=== PATIENT | female | born 1955 | race Caucasian/White ===

== ENCOUNTER 2021-05-23 02:06 | Outpatient (CLI) | payer MEDICARE, SELFPAY ==
[2021-05-23 10:27] LABS: Abs Immature Grans 0.45 10^3/uL (0.0-0.06); Basophils % 0.3; Eosinophils % 0.5; HCT 44.6 % (36.0-46.0); HGB 14.5 g/dL (11.2-15.7); Immature Grans % 2.2; Lymphocytes % 4.8; MCH 32.2 pg (27.0-33.0); MCHC 32.5 % (32.0-36.0); MCV 99.1 fL (80-95); MPV 10.5 fL (8.0-11.0); Monocytes % 4.4; Neutrophils % 87.8; Nucleated RBC 0 %; Platelet Count 270 10^3/uL (130-400); RDW 13.2 % (11.7-14.6); RDW-SD 48.2 fL; WBC 20.58 10^3/uL (4.4-10.8)
[2021-05-23 10:28] LABS: Absolute Basophil Count 0.06 10^3/uL (0.0-0.2); Absolute Lymphocyte Count 0.99 10^3/uL (1.2-3.4); Absolute Monocyte Count 0.91 10^3/uL (0.1-0.8); Absolute Neutrophil Count 18.07 10^3/uL (1.2-6.7)
[2021-05-23 10:41] LABS: ALT 31 U/L (14-59); AST 14 U/L (15-37); Albumin 3.6 g/dL (3.4-5.0); Alkaline Phosphatase 58 U/L (46-116); Anion Gap 9.4 mmol/L (3-11); BUN 26 mg/dL (7-18); Bilirubin, Total 0.5 mg/dL (0.2-1.0); CO2 27.6 mmol/L (21.0-32.0); CREATININE 0.9 mg/dL (0.55-1.02); Calcium 8.7 mg/dL (8.5-10.1); Chloride 97 mmol/L (98-107); Glucose 96 mg/dL (74-106); Sodium 134 mmol/L (136-145); Total Protein 6.8 g/dL (6.4-8.2)
--- NOTE | 2021-05-23 11:16 | DI.CT_ITS ---
Exam(s) CT CHEST W EXAM: CT CHEST W CLINICAL HISTORY: BRAIN METS C79.31 LUNG CANCER C34.11 RESTAGING TECHNIQUE: Imaging Protocol: Axial computed tomography images with coronal and sagittal reformatted images were created and reviewed CONTRAST MATERIAL: Intravenous: Omnipaque 350 Contrast volume:70 ml. COMPARISON: CT CT CHEST W CONTRAST from 11/24/2020 FINDINGS: Tracheobronchial tree: No bronchiectasis or mucous plugging. Mediastinum and Aggie: No dominant adenopathy or fluid collection. Pulmonary parenchyma: Emphysematous changes greater in the upper lung lou.. Suture material left u pper lobe near the major fissure. Post surgical scarring, minimal at the medial and posterior right l james base. Mild scarring right lung apex. No consolidation or dominant measurable mass. No pulmonary nodules. Pleura: No effusion or pneumothorax. Heart: The heart is not dilated. coronary artery calcifications are seen. Aorta: Thoracic aorta non-dilated. Atherosclerotic changes. Visualized portions of abdominal aorta s how mural thrombus and calcification as well as mild dilatation, 2.8 cm. Upper abdomen: Fatty liver. Lymph nodes: Within normal limits. Bones: Sternal wires. Soft tissues: Unremarkable. IMPRESSION: Mild bilateral postsurgical scarring . No evidence of recurrence mass, infiltrate or pulmonary nodul es. RADIATION DOSE DELIVERED: 514.66mGy.cm Total DLP DATA REPOSITORY: All CT scans at this facility are submitted to the National Radiology Data Registry (NRDR) Dose Index Registry (DIR) with the [employer] (ACR). RADIATION OPTIMIZATION: All CT scans at this facility use at least one of these dose optimization te chniques: automated exposure control; mA and/or kV adjustment per patient size (includes targeted exa ms where dose is matched to clinical indication); or iterative reconstruction.
== END 2021-05-23 02:26 ==
PROVIDERS: Nurse Practitioner Adult Health; PCP Nurse Practitioner Family; Visit Provider Internal Medicine Medical Oncology
DX: C79.31 Secondary malignant neoplasm of brain (principal); C34.11 Malignant neoplasm of upper lobe, right bronchus or lung
CPT/HCPCS: 80053; 71260; 85025

== ENCOUNTER 2021-06-19 03:17 | Outpatient (CLI) | payer MEDICARE, SELFPAY ==
[2021-06-19 11:37] LABS: Abs Immature Grans 0.09 10^3/uL (0.0-0.06); Absolute Basophil Count 0.07 10^3/uL (0.0-0.2); Absolute Eosinophil Count 0.06 10^3/uL (0.0-0.7); Absolute Lymphocyte Count 0.79 10^3/uL (1.2-3.4); Absolute Monocyte Count 0.64 10^3/uL (0.1-0.8); Absolute Neutrophil Count 10.14 10^3/uL (1.2-6.7); Basophils % 0.6; Eosinophils % 0.5; HCT 47.1 % (36.0-46.0); HGB 15.3 g/dL (11.2-15.7); Immature Grans % 0.8; Lymphocytes % 6.7; MCH 31.2 pg (27.0-33.0); MCHC 32.5 % (32.0-36.0); MCV 95.9 fL (80-95); MPV 9.3 fL (8.0-11.0); Monocytes % 5.4; Nucleated RBC 0 %; Platelet Count 291 10^3/uL (130-400); RBC 4.91 10^6/uL (3.93-5.22); RDW 12.8 % (11.7-14.6); RDW-SD 45.9 fL; WBC 11.79 10^3/uL (4.4-10.8)
[2021-06-19 12:17] LABS: ALT 41 U/L (14-59); AST 16 U/L (15-37); Alkaline Phosphatase 61 U/L (46-116); Anion Gap 8.2 mmol/L (3-11); BUN 17 mg/dL (7-18); Bilirubin, Total 0.4 mg/dL (0.2-1.0); CO2 28.8 mmol/L (21.0-32.0); CREATININE 0.8 mg/dL (0.55-1.02); Calcium 9.4 mg/dL (8.5-10.1); Chloride 100 mmol/L (98-107); Glucose 105 mg/dL (74-106); Magnesium 2.3 mg/dL (1.8-2.4); Potassium 4.4 mmol/L (3.5-5.1); Sodium 137 mmol/L (136-145); TSH 0.72 uIU/mL (0.36-3.74); Total Protein 7.7 g/dL (6.4-8.2)
== END 2021-06-19 03:18 | disposition home or self-care (01) ==
LOC: LBO 03:17
PROVIDERS: PCP Nurse Practitioner Family; Visit Provider Internal Medicine Medical Oncology
DX: Z79.899 Other long term (current) drug therapy (principal); C79.31 Secondary malignant neoplasm of brain; C34.11 Malignant neoplasm of upper lobe, right bronchus or lung
CPT/HCPCS: 36415; 80053; 83735; 84439; 84443; 85025

== ENCOUNTER 2021-06-26 10:39 | Outpatient (CLI) | payer MEDICARE, SELFPAY ==
[2021-06-26 14:51] LABS: Abs Immature Grans 0.03 10^3/uL (0.0-0.06); Absolute Basophil Count 0.03 10^3/uL (0.0-0.2); Absolute Eosinophil Count 0.06 10^3/uL (0.0-0.7); Absolute Lymphocyte Count 0.71 10^3/uL (1.2-3.4); Absolute Monocyte Count 0.35 10^3/uL (0.1-0.8); Absolute Neutrophil Count 2.41 10^3/uL (1.2-6.7); Basophils % 0.8; Eosinophils % 1.7; HCT 40.1 % (36.0-46.0); HGB 13.4 g/dL (11.2-15.7); Immature Grans % 0.8; Lymphocytes % 19.8; MCH 31.2 pg (27.0-33.0); MCHC 33.4 % (32.0-36.0); MCV 93.3 fL (80-95); MPV 9.4 fL (8.0-11.0); Monocytes % 9.7; Neutrophils % 67.2; Nucleated RBC 0 %; Platelet Count 187 10^3/uL (130-400); RDW 12.7 % (11.7-14.6); RDW-SD 43.8 fL; WBC 3.59 10^3/uL (4.4-10.8)
[2021-06-26 15:12] LABS: ALT 38 U/L (14-59); AST 16 U/L (15-37); Albumin 3.1 g/dL (3.4-5.0); Alkaline Phosphatase 65 U/L (46-116); Anion Gap 6.4 mmol/L (3-11); BUN 11 mg/dL (7-18); Bilirubin, Total 0.3 mg/dL (0.2-1.0); CO2 28.6 mmol/L (21.0-32.0); CREATININE 0.8 mg/dL (0.55-1.02); Calcium 8.8 mg/dL (8.5-10.1); Chloride 98 mmol/L (98-107); FREE T4 1.19 ng/dL (0.76-1.46); Glucose 128 mg/dL (74-106); Magnesium 1.9 mg/dL (1.8-2.4); Potassium 4.3 mmol/L (3.5-5.1); Sodium 133 mmol/L (136-145); TSH 0.76 uIU/mL (0.36-3.74)
== END 2021-06-26 10:40 | disposition home or self-care (01) ==
PROVIDERS: PCP Nurse Practitioner Family; Visit Provider Internal Medicine Medical Oncology
DX: C34.11 Malignant neoplasm of upper lobe, right bronchus or lung (principal); C79.31 Secondary malignant neoplasm of brain; Z79.899 Other long term (current) drug therapy
CPT/HCPCS: 36415; 80053; 83735; 84439; 84443; 85025

== ENCOUNTER 2021-07-03 01:53 | Outpatient (CLI) | payer MEDICARE, SELFPAY ==
--- NOTE | 2021-07-03 09:45 | DI.MRI_ITS ---
Exam(s) MR BRAIN WO/W EXAM: MR BRAIN WO/W CLINICAL HISTORY: BRAIN METASTASIS, C79.31 TECHNIQUE: Multiplanar multisequence MRI of the brain was performed. Both noninfused and contrast i nfused sequences were performed. IV Contrast injected was [address] CHEST W CONTRAST from 11/24/[address] CHEST W from 05/23/2021 FINDINGS: CEREBRAL PARENCHYMA: No evidence of intracranial hemorrhage, new mass effect nor shift of midline str uctures. No extraaxial fluid collections. Ventricles are not enlarged nor shifted. There is no significant focal signal abnormality in the cerebellar hemispheres nor within the breann, m idbrain, and thalami. Previously described ring-enhancing lesion in the white matter adjacent to the posterior aspect of th e left lateral ventricle is again noted, exhibiting minimal change and with no new ring-enhancing les ions in the brain. The amount of edema surrounding this left-sided lesion has not increased and ther e is no significant mass effect upon the adjacent left lateral ventricle. Other nonspecific white matter signal foci are unchanged, these not associated with hemorrhage, surro unding edema, nor enhancement nor restricted diffusion. PITUITARY GLAND: No mass nor parasellar abnormality. No obvious abnormality in the cavernous sinuses. FLOW VOIDS: The expected flow void are noted. No evidence of obvious aneurysm nor obvious vascular ma lformation. PARANASAL SINUSES: The visualized paranasal sinuses appear unremarkable. ORBITS: No obvious abnormal findings. IMPRESSION: 1. Stable appearance of the solitary metastatic lesion in the left periventricular white matter. No new ring-enhancing lesions in the brain and no new abnormal meningeal enhancement. DATA REPOSITORY:
[2021-07-03] MEDS: Normal Saline Flush 10 ML SYR IVP (09:50)
[2021-07-03] MEDS: Gadoterate meglumine 20 ML VIAL 13 ML IVP (09:51)
== END 2021-07-03 02:13 ==
LOC: DI 01:53
PROVIDERS: PCP Nurse Practitioner Family; Visit Provider Radiology Radiation Oncology
DX: C79.31 Secondary malignant neoplasm of brain (principal)
CPT/HCPCS: 70553

== ENCOUNTER 2021-07-10 02:43 | Outpatient (CLI) | payer MEDICARE, SELFPAY ==
[2021-07-10 09:00] LABS: HCT 43.3 % (36.0-46.0); MCH 30.9 pg (27.0-33.0); MCHC 32.3 % (32.0-36.0); MCV 95.6 fL (80-95); MPV 9.8 fL (8.0-11.0); Platelet Count 168 10^3/uL (130-400); RBC 4.53 10^6/uL (3.93-5.22); RDW 13.5 % (11.7-14.6); RDW-SD 47.2 fL; WBC 24.47 10^3/uL (4.4-10.8)
[2021-07-10 09:16] LABS: ALT 43 U/L (14-59); AST 16 U/L (15-37); Albumin 3.6 g/dL (3.4-5.0); Alkaline Phosphatase 64 U/L (46-116); Anion Gap 6.7 mmol/L (3-11); BUN 24 mg/dL (7-18); Bilirubin, Total 0.3 mg/dL (0.2-1.0); CO2 29.3 mmol/L (21.0-32.0); CREATININE 0.9 mg/dL (0.55-1.02); Calcium 9.2 mg/dL (8.5-10.1); Chloride 94 mmol/L (98-107); FREE T4 0.91 ng/dL (0.76-1.46); Glucose 122 mg/dL (74-106); Potassium 4.8 mmol/L (3.5-5.1); Sodium 130 mmol/L (136-145); Total Protein 7.2 g/dL (6.4-8.2)
[2021-07-10 09:54] LABS: Absolute Lymphocyte Count 1.22 10^3/uL (1.2-3.4); Absolute Monocyte Count 1.47 10^3/uL (0.1-0.8); Absolute Neutrophil Count 21.29 10^3/uL (1.2-6.7); Bands % 1; Metamyelocytes % 2; Nucleated RBC 1 %
[2021-07-10 09:55] LABS: Diff Comment Manual Differential; RBC Morphology Normal
== END 2021-07-10 02:44 | disposition home or self-care (01) ==
LOC: LBO 02:43
PROVIDERS: PCP Nurse Practitioner Family; Visit Provider Internal Medicine Medical Oncology
DX: C34.11 Malignant neoplasm of upper lobe, right bronchus or lung (principal); C79.31 Secondary malignant neoplasm of brain; Z79.899 Other long term (current) drug therapy
CPT/HCPCS: 36415; 80053; 83735; 84439; 85025

== ENCOUNTER 2021-07-27 03:05 | Outpatient (CLI) | payer MEDICARE, SELFPAY ==
[2021-07-27 08:21] LABS: Absolute Basophil Count 0.11 10^3/uL (0.0-0.2); HCT 41.3 % (36.0-46.0); HGB 13.5 g/dL (11.2-15.7); MCH 31.3 pg (27.0-33.0); MCHC 32.7 % (32.0-36.0); MCV 95.6 fL (80-95); MPV 8.9 fL (8.0-11.0); RBC 4.32 10^6/uL (3.93-5.22); RDW 15.1 % (11.7-14.6); RDW-SD 50.7 fL; WBC 11.45 10^3/uL (4.4-10.8)
[2021-07-27 08:47] LABS: Absolute Eosinophil Count 0.34 10^3/uL (0.0-0.7); Absolute Monocyte Count 0.92 10^3/uL (0.1-0.8); Absolute Neutrophil Count 8.13 10^3/uL (1.2-6.7); Diff Comment Manual Differential; Metamyelocytes % 2; Platelet Count 259 10^3/uL (130-400)
[2021-07-27 08:48] LABS: Poikilocytes 1+; Polychromasia Present
[2021-07-27 09:08] LABS: ALT 58 U/L (14-59); AST 18 U/L (15-37); Albumin 3.6 g/dL (3.4-5.0); Alkaline Phosphatase 62 U/L (46-116); Anion Gap 6.5 mmol/L (3-11); BUN 28 mg/dL (7-18); Bilirubin, Total 0.3 mg/dL (0.2-1.0); CO2 29.5 mmol/L (21.0-32.0); CREATININE 0.9 mg/dL (0.55-1.02); Calcium 9.2 mg/dL (8.5-10.1); Chloride 96 mmol/L (98-107); FREE T4 0.95 ng/dL (0.76-1.46); Glucose 97 mg/dL (74-106); Potassium 4.8 mmol/L (3.5-5.1); Sodium 132 mmol/L (136-145); TSH 1.01 uIU/mL (0.36-3.74); Total Protein 6.7 g/dL (6.4-8.2)
== END 2021-07-27 03:06 | disposition home or self-care (01) ==
LOC: LBO 03:05
PROVIDERS: PCP Nurse Practitioner Family; Visit Provider Internal Medicine Medical Oncology
DX: C79.31 Secondary malignant neoplasm of brain (principal); C34.11 Malignant neoplasm of upper lobe, right bronchus or lung; Z79.899 Other long term (current) drug therapy
CPT/HCPCS: 36415; 80053; 83735; 84439; 84443; 85025

== ENCOUNTER 2021-07-31 02:10 | Outpatient (CLI) | payer MEDICARE, SELFPAY ==
[2021-07-31 10:19] LABS: HCT 40.5 % (36.0-46.0); HGB 13.5 g/dL (11.2-15.7); MCH 30.9 pg (27.0-33.0); MCHC 33.3 % (32.0-36.0); MCV 93 fL (80-95); MPV 9.1 fL (8.0-11.0); Platelet Count 247 10^3/uL (130-400); RBC 4.37 10^6/uL (3.93-5.22); RDW 15.7 % (11.7-14.6); RDW-SD 51.8 fL
[2021-07-31 10:33] LABS: Absolute Eosinophil Count 0.16 10^3/uL (0.0-0.7); Absolute Lymphocyte Count 0.33 10^3/uL (1.2-3.4); Absolute Monocyte Count 1.31 10^3/uL (0.1-0.8); Atypical Lymphocytes % 1; Bands % 2; Diff Comment Manual Differential; RBC Morphology Normal
[2021-07-31 10:39] LABS: ALT 47 U/L (14-59); AST 21 U/L (15-37); Albumin 3.5 g/dL (3.4-5.0); Alkaline Phosphatase 60 U/L (46-116); Anion Gap 8.3 mmol/L (3-11); BUN 19 mg/dL (7-18); Bilirubin, Total 0.7 mg/dL (0.2-1.0); CO2 28.7 mmol/L (21.0-32.0); CREATININE 0.9 mg/dL (0.55-1.02); Calcium 8.8 mg/dL (8.5-10.1); Chloride 94 mmol/L (98-107); FREE T4 1.22 ng/dL (0.76-1.46); Glucose 119 mg/dL (74-106); Potassium 4.4 mmol/L (3.5-5.1); Sodium 131 mmol/L (136-145); TSH 0.76 uIU/mL (0.36-3.74)
== END 2021-07-31 02:11 | disposition home or self-care (01) ==
LOC: LBO 02:10
PROVIDERS: PCP Nurse Practitioner Family; Visit Provider Internal Medicine Medical Oncology
DX: C79.31 Secondary malignant neoplasm of brain (principal); C34.11 Malignant neoplasm of upper lobe, right bronchus or lung; Z79.899 Other long term (current) drug therapy
CPT/HCPCS: 36415; 80053; 83735; 84439; 84443; 85025

== ENCOUNTER 2021-08-21 04:02 | Outpatient (CLI) | payer MEDICARE, SELFPAY ==
[2021-08-21 10:35] LABS: HCT 35.2 % (36.0-46.0); HGB 11.5 g/dL (11.2-15.7); MCH 31.5 pg (27.0-33.0); MCHC 32.7 % (32.0-36.0); MCV 96 fL (80-95); Platelet Count 318 10^3/uL (130-400); RBC 3.65 10^6/uL (3.93-5.22); RDW 17.1 % (11.7-14.6); RDW-SD 58.6 fL; WBC 15.76 10^3/uL (4.4-10.8)
[2021-08-21 10:51] LABS: Absolute Lymphocyte Count 0.79 10^3/uL (1.2-3.4); Absolute Monocyte Count 0.63 10^3/uL (0.1-0.8); Absolute Neutrophil Count 13.87 10^3/uL (1.2-6.7); Atypical Lymphocytes % 1; Bands % 10; Diff Comment Manual Differential; Metamyelocytes % 3; RBC Morphology Normal
[2021-08-21 11:03] LABS: ALT 46 U/L (14-59); AST 24 U/L (15-37); Albumin 3.3 g/dL (3.4-5.0); Alkaline Phosphatase 76 U/L (46-116); Anion Gap 10.1 mmol/L (3-11); BUN 18 mg/dL (7-18); Bilirubin, Total 0.6 mg/dL (0.2-1.0); CO2 26.9 mmol/L (21.0-32.0); CREATININE 0.8 mg/dL (0.55-1.02); Calcium 9.4 mg/dL (8.5-10.1); Chloride 95 mmol/L (98-107); FREE T4 1.09 ng/dL (0.76-1.46); Glucose 119 mg/dL (74-106); Magnesium 2.4 mg/dL (1.8-2.4); Potassium 4.5 mmol/L (3.5-5.1); Sodium 132 mmol/L (136-145); TSH 0.73 uIU/mL (0.36-3.74); Total Protein 7.6 g/dL (6.4-8.2)
== END 2021-08-21 04:03 | disposition home or self-care (01) ==
LOC: LBO 04:03
PROVIDERS: PCP Nurse Practitioner Family; Visit Provider Internal Medicine Medical Oncology
DX: C79.31 Secondary malignant neoplasm of brain (principal); C34.11 Malignant neoplasm of upper lobe, right bronchus or lung; Z79.899 Other long term (current) drug therapy
CPT/HCPCS: 36415; 80053; 83735; 84439; 84443; 85025

== ENCOUNTER 2021-09-04 18:03 | Outpatient (CLI) | payer MEDICARE, SELFPAY ==
[2021-09-04 11:05] LABS: Abs Immature Grans 0.42 10^3/uL (0.0-0.06); Absolute Basophil Count 0.04 10^3/uL (0.0-0.2); Absolute Eosinophil Count 0.07 10^3/uL (0.0-0.7); Absolute Lymphocyte Count 0.43 10^3/uL (1.2-3.4); Absolute Monocyte Count 0.63 10^3/uL (0.1-0.8); Absolute Neutrophil Count 3.79 10^3/uL (1.2-6.7); Basophils % 0.7; Eosinophils % 1.3; HCT 30.1 % (36.0-46.0); Immature Grans % 7.8; MCH 32.7 pg (27.0-33.0); MCHC 33.2 % (32.0-36.0); MCV 98 fL (80-95); MPV 9.8 fL (8.0-11.0); Monocytes % 11.7; Neutrophils % 70.5; Nucleated RBC 0.6 % (0.0-0.3); Platelet Count 215 10^3/uL (130-400); RBC 3.06 10^6/uL (3.93-5.22); RDW 17.8 % (11.7-14.6); RDW-SD 63.2 fL; WBC 5.38 10^3/uL (4.4-10.8)
[2021-09-04 11:15] LABS: Anisocytosis 1+; Diff Comment Diff Reviewed
[2021-09-04 11:28] LABS: ALT 81 U/L (14-59); AST 28 U/L (15-37); Albumin 3.1 g/dL (3.4-5.0); Alkaline Phosphatase 81 U/L (46-116); Anion Gap 9.3 mmol/L (3-11); BUN 12 mg/dL (7-18); Bilirubin, Total 0.8 mg/dL (0.2-1.0); CO2 26.7 mmol/L (21.0-32.0); CREATININE 0.8 mg/dL (0.55-1.02); Calcium 9.1 mg/dL (8.5-10.1); Chloride 98 mmol/L (98-107); FREE T4 1.37 ng/dL (0.76-1.46); Glucose 123 mg/dL (74-106); Magnesium 1.9 mg/dL (1.8-2.4); Sodium 134 mmol/L (136-145); TSH 1.08 uIU/mL (0.36-3.74); Total Protein 7.3 g/dL (6.4-8.2)
== END 2021-09-04 18:04 | disposition home or self-care (01) ==
LOC: LBO 18:06
PROVIDERS: PCP Nurse Practitioner Family; Visit Provider Internal Medicine Medical Oncology
DX: C79.31 Secondary malignant neoplasm of brain (principal); C34.11 Malignant neoplasm of upper lobe, right bronchus or lung; Z79.899 Other long term (current) drug therapy
CPT/HCPCS: 36415; 80053; 83735; 84439; 84443; 85025

== ENCOUNTER 2021-09-25 03:25 | Outpatient (CLI) | payer MEDICARE, SELFPAY | END 2021-09-25 03:26 | disposition home or self-care (01) | LOC: LBO 03:25 | PROVIDERS: PCP Nurse Practitioner Family; Visit Provider Internal Medicine Medical Oncology ==

== ENCOUNTER 2021-09-25 03:29 | Outpatient (CLI) | payer MEDICARE, SELFPAY ==
[2021-09-25 10:23] LABS: Abs Immature Grans 0.31 10^3/uL (0.0-0.06); Absolute Basophil Count 0.06 10^3/uL (0.0-0.2); Absolute Eosinophil Count 0.02 10^3/uL (0.0-0.7); Absolute Lymphocyte Count 0.56 10^3/uL (1.2-3.4); Absolute Monocyte Count 0.62 10^3/uL (0.1-0.8); Basophils % 0.3; Eosinophils % 0.1; HCT 36.2 % (36.0-46.0); HGB 11.5 g/dL (11.2-15.7); Immature Grans % 1.6; Lymphocytes % 2.9; MCH 33.6 pg (27.0-33.0); MCHC 31.8 % (32.0-36.0); MCV 106 fL (80-95); MPV 9.7 fL (8.0-11.0); Monocytes % 3.2; Neutrophils % 91.9; Nucleated RBC 0.2 % (0.0-0.3); Platelet Count 333 10^3/uL (130-400); RBC 3.42 10^6/uL (3.93-5.22); RDW 17.2 % (11.7-14.6); RDW-SD 67.2 fL; WBC 19.28 10^3/uL (4.4-10.8)
[2021-09-25 10:36] LABS: Absolute Neutrophil Count 17.72 10^3/uL (1.2-6.7)
[2021-09-25 10:46] LABS: ALT 55 U/L (14-59); AST 24 U/L (15-37); Albumin 3.6 g/dL (3.4-5.0); Alkaline Phosphatase 84 U/L (46-116); Anion Gap 11.7 mmol/L (3-11); BUN 21 mg/dL (7-18); Bilirubin, Total 0.3 mg/dL (0.2-1.0); CO2 27.3 mmol/L (21.0-32.0); CREATININE 1.1 mg/dL (0.55-1.02); Calcium 9.3 mg/dL (8.5-10.1); Chloride 100 mmol/L (98-107); Estimated GFR 49.39 (mL/min/1.73m2); FREE T4 0.98 ng/dL (0.76-1.46); Glucose 154 mg/dL (74-106); Magnesium 2.1 mg/dL (1.8-2.4); Potassium 4.5 mmol/L (3.5-5.1); Sodium 139 mmol/L (136-145); TSH 0.77 uIU/mL (0.36-3.74); Total Protein 7.5 g/dL (6.4-8.2)
== END 2021-09-25 03:30 | disposition home or self-care (01) ==
LOC: LBO 03:29
PROVIDERS: PCP Nurse Practitioner Family; Visit Provider Internal Medicine Medical Oncology
DX: C79.31 Secondary malignant neoplasm of brain (principal); C34.11 Malignant neoplasm of upper lobe, right bronchus or lung; Z79.899 Other long term (current) drug therapy
CPT/HCPCS: 36415; 80053; 83735; 84439; 84443; 85025

== ENCOUNTER 2021-10-10 01:40 | Outpatient (CLI) | payer MEDICARE, SELFPAY ==
[2021-10-10] MEDS: Normal Saline Flush 10 ML SYR IVP (13:31)
--- NOTE | 2021-10-10 14:00 | DI.MRI_ITS ---
Exam(s) MR BRAIN WO/W EXAM: MR BRAIN WO/W CLINICAL HISTORY: BRAIN METS C79.31 TECHNIQUE: Multiplanar multisequence MRI of the brain was performed. CONTRAST MATERIAL: IV Contrast: 15 mL of Dotarem contrast administered. COMPARISON: MR MR BRAIN WO/W from 07/03/2021 FINDINGS: The examination is limited due to patient motion artifact. VENTRICLES AND EXTRA AXIAL SPACES: Normal in size and morphology for the patient's age. HEMORRHAGE: No new evidence of hemorrhage is seen. CEREBRAL PARENCHYMA: No focus of restricted diffusion to suggest acute infarct. There has been no ivett nge in appearance/size of the ring-enhancing lesion in the left periventricular white matter. No ivett nge in the surrounding edema is seen. No significant mass effect is appreciated. There are areas of hyperintense signal seen in the white matter on the FLAIR and T2 weighted images most consistent wit h small vessel ischemic disease. MIDLINE SHIFT: None. BRAINSTEM/CEREBELLUM: Normal. CALVARIUM: Normal. ENHANCEMENT: Please see the above discussion. VISUALIZED PARANASAL SINUSES/MASTOIDS: Clear. LUMBEE OF KWON: Normal flow void. PITUITARY GLAND: Unremarkable. OTHER FINDINGS: IMPRESSION: 1. Stable solitary intracranial metastatic lesion. 2. No new intracranial metastases, infarct or abnormality. 3. Small vessel ischemic disease. DATA REPOSITORY:
== END 2021-10-10 02:00 ==
LOC: DI 01:41
PROVIDERS: PCP Nurse Practitioner Family; Visit Provider Radiology Radiation Oncology
DX: C79.31 Secondary malignant neoplasm of brain (principal); C80.1 Malignant (primary) neoplasm, unspecified; G93.89 Other specified disorders of brain
CPT/HCPCS: 70553

== ENCOUNTER 2021-10-16 02:25 | Outpatient (CLI) | payer MEDICARE, SELFPAY ==
--- OUTSIDE RECORDS SUMMARY | 2021-10-16 02:29 | XMS_ITS | Encounter Summary ---
:1955 Author Organization [facility] Address [address] [place] [address] Care Team Providers Name Role Phone Sharif Mercedes MD Primary Care Provider Encounter Details Date Type Department Care Team Description 01/24/2018 Results Only [facility]- [facility] Komal Murguia MD [phone] [address] [place] [address] (Wo rk) Social History Tobacco Use Types Packs/Day Years Used Date Never Assessed Sex Assigned at Date Recorded Not on file documented as of this encounter Plan of Treatment Not on filedocumented as of this encounter Procedures Procedure Name Priority Date/Time Associated Diagnosis Comme [facility] SURGICAL PATHOLOGY Routine 01/24/2018 8:19 EDT Re sults for this procedure are i n the results section. documented in this encounter Results SURGICAL PATHOLOGY (01/24/2018 8:19 EDT) Pathology Report: SURGICAL PATHOLOGY REPORT [facility] Reports generated via electronic interface contain charity ginal data; SERVICES however they are lacking the format of the original re port. Caution should be taken when reading/interpreting unfo rmatted reports. Name: ? VANESA RICHARDSON ? Accession #: ? [id number] ? : ? 1955 (Age: [age]) ??F ?Collect Da te: ? 01/24/2018 ? Location: ? [facility] ? Receive Date: ? 01/25/20 18 ? Provider: KOMAL MURGUIA MD Copy to: ? Addendum ? Date Ordered: ? 01/28/2018 ? Status: Si gned Out ? Date Complete: ? 01/28/2018 ? By: RHONDA KHAN MD ? Date Reported: ? 01/28/2018 ? Addendum Comment This addendum is placed to revise the diagnosis of the case just signed out, inadvertently, before it was completed. Columnar mucosa has a rare goblet cell, compatible with focal intestinal metaplasia. There is no dysplasia. Document reviewed and electronically signed by: ? ANA KHAN MD ? Report date: 01/28/2018 By the signature above, the attending physician certif ies that he/she has personally conducted a gross and/or microscopic examin ation of the described specimens and rendered or confirmed the above diagnosi s. Final Report Final Pathologic Diagnosis: A. STOMACH, SITE NOT OTHERWISE SPECIFIED, BIOPSY: - ??Oxyntic mucosa with reactive gastropathy. - ??No evidence of Helicobacter pylori on H&E. B. ESOPHAGUS, DISTAL, BIOPSY: - ??Squamous and adjoining c olumnar mucosa with features of reflux esophagitis. ?? - ??Negative for intestinal metaplasia or dysplasia. ? Gross Description: A. ?Received in formalin labelled with proper p atient identification (initials J, J) and gastric bx are three stanley-w barby tissues (0.4 x 0.1 x 0.1 cm, 0.3 x 0.1 x 0.1 cm and 0.1 x 0.1 x 0.1 cm). Entire ly submitted in A1. B. ?Received in formalin labelled with proper p atient identification (initials J, J) and distal esophagus are four white tissues (0.6 x 0.1 x 0.1 cm to 0.1 x 0.1 x 0.1 cm). Entirely submitted in B1 and B 2. Magdy Torrez 01/27/2018 8:04 AM ? 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 Specimens Received: A: Stomach, biopsy B: Esophagus, biopsy Document reviewed and electronically signed by: ? ANA KHAN MD ? Report ??Date: 01/28/2018 12:38 By the signature above, the attending physician certif ies that he/she has personally conducted a gross and/or microscopic examin ation of the described specimens and rendered or confirmed the above diagnosi s. End of Report Specimen Performing Organization Address City/State/ZIP Code Phon e Number [facility] [address] [place] [address] SERVICES documented in this encounter Visit Diagnoses Not on filedocumented in this encounter Care Teams Complex Care Nurse Relationship Specialty Start Date End Date Sharif Mercedes MD PCP - General 04/11/11 [address] [place] [address] documented as of this encounter
--- OUTSIDE RECORDS SUMMARY | 2021-10-16 02:29 | XMS_ITS | Encounter Summary ---
:1955 Author Organization [facility] Address [address] [place] [address] Care Team Providers Name Role Phone Sharif Guzman MD Primary Care Provider Encounter Details Date Type Department Care Team Description 12/29/2013 Results Only [facility]- [facility] George Barksdale MD [phone] [address] [facility] [address] [place] [address] (Wo rk) Social History Tobacco Use Types Packs/Day Years Used Date Never Assessed Sex Assigned at Date Recorded Not on file documented as of this encounter Plan of Treatment Not on filedocumented as of this encounter Procedures Procedure Name Priority Date/Time Associated Diagnosis Comme [facility] SURGICAL PATHOLOGY Routine 12/29/2013 17:43 Resul ts for this EDT procedure are i n the results section. documented in this encounter Results SURGICAL PATHOLOGY (12/29/2013 17:43 EDT) Pathology Report: SURGICAL PATHOLOGY REPORT [facility] Reports generated via electronic interface contain charity ginal data; LAB however they are lacking the format of the original re port. Caution should be taken when reading/interpreting unfo rmatted reports. Name: ? VANESA RICHARDSON ? Accession #: ? [id number] ? : ? 1955 (Age: 58) ??F ? Collect Date: ? 12/29/2013 ? Location: ? [facility] ? Receive Date: ? 12/31/19 14 ? Provider: CRISTA BARKSDALE MD Copy to: SHARIF GUZMAN MD ? Final Pathologic Diagnosis: A. SMALL BOWEL, SECOND PORTION OF DUODENUM, BIOPSY: - ??Duodenal mucosa with no diagnostic alteration. B. STOMACH, ANTRUM, BIOPSY: - ??Antral and oxyntic mucosa with reactive (chemical) gastropathy. - ??No evidence of Helicobacter pylori on H&E. C. ESOPHAGUS, LOWER, BIOPSY: - ??Cardia type mucosa with intestinal metaplasia, neg ative for dysplasia. - ??Adjoining and separate s quamous mucosa with features of reflux esophagitis. Document reviewed and electronically signed by: AAN KHAN MD Report ??Date: 01/02/2014 11:10 By the signature above, the attending physician certif ies that he/she has personally conducted a gross and/or microscopic examin ation of the described specimens and rendered or confirmed the above diagnosi s. Specimen(s) Received: A. ?2nd portion bx B. ? Antrum bx C. ? Lower esophagus bx Clinical History: Hx Stephens's; dysphagia; clinical diagnosis code: V12. 79 Gross Description: A. ?Received in formalin labelled with proper p atient identification (initials J, J) and 2nd portion, biopsy is a single pink-stanley tissue fragment (0.4 x 0.3 x 0.2 cm). Submitted intact in block A1. B. ?Received in formalin labelled with proper p atient identification (initials J, J) and antrum biopsy are two pink-stanley tissues (0.4 x 0.3 x 0.2 cm and 0.5 x 0.3 x 0.3 cm). Entirely submitted in block B 1. C. ?Received in formalin labelled with proper p atient identification (initials J, J) and lower e sophagus, biopsy are three pink-stanley tissues (0.2 x 0.2 x 0.1 cm to 0.5 x 0.2 x 0.1 cm). Entirely submitte d in block C1. 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
--- OUTSIDE RECORDS SUMMARY | 2021-10-16 02:29 | XMS_ITS | Encounter Summary ---
:1955 Author Organization [facility] Address [address] [place] [address] Care Team Providers Name Role Phone Sharif Guzman MD Primary Care Provider Encounter Details Date Type Department Care Team Description 05/12/2016 Results Only [facility]- [facility] George Barksdale MD [phone] [address] [facility] [address] [place] [phone] (Wo rk) Social History Tobacco Use Types Packs/Day Years Used Date Never Assessed Sex Assigned at Date Recorded Not on file documented as of this encounter Plan of Treatment Not on filedocumented as of this encounter Procedures Procedure Name Priority Date/Time Associated Diagnosis Comme [facility] SURGICAL PATHOLOGY Routine 05/10/2016 7:30 EST Re sults for this procedure are i n the results section. documented in this encounter Results SURGICAL PATHOLOGY (05/10/2016 7:30 EST) Pathology Report: SURGICAL PATHOLOGY REPORT [facility] Reports generated via electronic interface contain charity ginal data; LABORATORY however they are lacking the format of the original re port. SERVICES Caution should be taken when reading/interpreting unfo rmatted reports. Name: ? VANESA RICHARDSON ? Accession #: ? [id number] ? : ? 1955 (Age: [age]) ??F ? Collect Date: ? 05/10/2016 ? Location: ? [facility] ? Receive Date: ? 7 ? Provider: CRISTA BARKSDALE MD Copy to: SHARIF GUZMAN MD ? Final Pathologic Diagnosis: A. DUODENUM, 2ND PORTION, BIOPSY: - Duodenal mucosa with no significant diagnostic abnor mality. B. STOMACH, ANTRUM AND BODY, BIOPSY: - Gastric antral mucosa with mild reactive (chemical) gastropathy. - Gastric body mucosa with no specific pathologic feat ures. C. 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 - Negative for dysplasia. D. ESOPHAGUS, MID, BIOPSY: - Squamous mucosa with no specific pathologic features . Document reviewed and electronically signed by: VANDANA CARVAJAL MD Report ??Date: 05/15/2016 13:48 By the signature above, the attending physician certif ies that he/she has personally conducted a gross and/or microscopic examin ation of the described specimens and rendered or confirmed the above diagnosi s. Specimen(s) Received: A. ??Second portion duodenum bx B. ??Antrum and body bx C. ??Distal esophagus bx D. 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 ?Received in formalin labelled with proper p atient identification (initials J, J) and 2nd portion duodenu m bx are two stanley-brown tissues (0.4 x 0.1 x 0.1 cm and 0.5 x 0.2 x 0.1 cm). Entirely submitt ed in A1. B. ?Received in formalin labelled with proper p atient identification (initials J, J) and antrum and body bx are three stanley yellow to brown tissues (0.3 x 0.1 x 0.1 cm, 0.3 x 0.3 x 0.1 cm and 0.5 x 0.1 x 0.1 cm). Entirely submitted in B1. C. ?Received in formalin labelled with proper p atient identification (initials J, J) and distal esophagus bx are two stanley- white focally brown tissues (0.3 x 0.2 x 0.2 cm and 0.4 x 0. 3 x 0.2 cm). Entirely submitted in C1. D. ?Received in formalin labelled with proper p atient identification (initials J, J) and mid eso phagus bx are two white focally brown tissues (0.2 x 0.2 x 0.1 cm and 0.3 x 0.2 x 0.1 cm). Entirely submi tted in D1. Dr. 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
--- OUTSIDE RECORDS SUMMARY | 2021-10-16 02:29 | XMS_ITS | Encounter Summary ---
:1955 Author Organization [facility] Address [address] [place] [address] Care Team Providers Name Role Phone Unknown, Provider Primary Care Provider Encounter Details Date Type Department Care Team Description 04/09/2011 Results Only [facility] Alvaro De La Rosa, Laboratory Services - [address] [place] [address] [address] [facility] [place] [address] [phone] Social History Tobacco Use Types Packs/Day Years Used Date Never Assessed Sex Assigned at Date Recorded Not on file documented as of this encounter Plan of Treatment Not on filedocumented as of this encounter Procedures Procedure Name Priority Date/Time Associated Diagnosis Comme [facility] SURGICAL PATHOLOGY Routine 04/09/2011 0:00 EST Re sults for this procedure are i n the results section. documented in this encounter Results SURGICAL PATHOLOGY (04/09/2011 0:00 EST) Pathology Report: SURGICAL PATHOLOGY REPORT [facility] Reports generated via electronic interface contain charity ginal data; LAB however they are lacking the format of the original re port. Caution should be taken when reading/interpreting unfo rmatted reports. Name: ? VANESA RICHARDSON ? Accession #: ? [id number] ? : ? 1955 (Age: 55) ??F ? Collect Date: ? 04/09/2011 ? Location: ? [facility] ? Receive Date: ? 04/09/19 12 ? Provider: ALVARO DE LA ROSA DO Copy to: FRANCISCO GUZMAN MD ? Final Pathologic Diagnosis: A. ?Small intestine, duodenum, 2nd portio n, biopsy: 1. ?Duodenal mucosa with no specific path ologic features. B. ?Stomach, antrum, biopsy: 1. ?Antral mucosa with no specific pathol ogic features. C. ?Submitted as R/O Stephens's, biopsy: 1. ?Squamocolum tato junctional mucosa with chronic inflammation and intestinal metaplasia. 2. ? Negative for dysplasia. D. ?Colon, ascending, 7.0 mm polyp, biops y: 1. ?Tubular adenoma. E. ?Colon, ascending, 1.0 mm polyps, biop sy: 1. ?Tubular adenoma(s). F. ?Colon, descending, 1.0 cm polyp, biop sy: 1. ?Hyperplastic polyp. Document reviewed and electronically signed by: BELKIS GARCIA MD Report ??Date: 04/11/2011 15:24 By the signature above, the attending physician certif ies that he/she has personally conducted a gross and/or microscopic examin ation of the described specimens and rendered or confirmed the above diagnosi s. Specimen(s) Received: A. ?2nd portion B. ? Antrum C. ? R/O Stephens's D. ? 7.0 mm ascending colon polyp E. ? 1.0 mm ascending colon polyps F. ? 1.0 cm descending colon polyp Clinical History: ? Guaiac (+) stool; A-C . EGD; D-F. Colon; clinical diagnosis code: ??578.1 Gross Description: ? Received in formalin labelled Vanesa Rihcardson and A ??2nd portion are three light stanley biopsies whi ch vary in size from 0.2 x 0.2 x 0.2 cm up to 0.4 x 0.3 x 0.2 cm. ??The specimens are submitted intact as (A). Received in formalin ira d Vanesa Richardson and B ??antrum is a 0.3 x 0.3 x 0.2 cm light stanley biopsy. ??[facility] ([facility] Received in formalin labelled Sandra Richardson and C ??R/O Stephens's are two light stanley biopsies measuring 0.3 x 0.2 x 0.1 cm and 0.3 x 0.1 x 0.1 cm. ??The specimens are submitted intact as (C). Received in formalin labelled Sandra Richardson and D ??7.0 mm ascending colon polyp is a 0.2 x 0.2 x 0.1 cm light stanley biopsy. ??The specimen is submitted intact as (D). Received in formalin labelled Sandra Richardson and E ??1.0 mm ascending colon polyps are three light stanley biopsies which vary in size from 0.1 x 0.1 x 0.1 cm up to 0.3 x 0.2 x 0.1 cm. ??The specimens are submitte d intact as (E). Received in formalin ira d Vanesa Richardson and F ??1.0 cm descending colon polyp are two light stanley biopsies measur ing 0.3 x 0.2 x 0.1 cm and 0.5 x 0.4 x 0.1 cm. ??The specimens are submitted intact as (F). ? ?(Floyd Rdz)/[facility] End of Report Specimen Performing Organization Address City/State/ZIP Code Phon e Number [facility] [address] [place] [address] SERVICES [facility] [address] [place] [address] documented in this encounter Visit Diagnoses Not on filedocumented in this encounter Care Teams [employer] Relationship Specialty Start Date End Date Unknown, Provider, PCP - General 04/09/11 04/10/11 documented as of this encounter
--- OUTSIDE RECORDS SUMMARY | 2021-10-16 02:29 | XMS_ITS | Encounter Summary ---
:1955 Author Organization [facility] Address [address] [place] [address] Care Team Providers Name Role Phone Sharif Mercedes MD Primary Care Provider Encounter Details Date Type Department Care Team Description 12/29/2013 Hospital Encounter [facility]- [place] Unknown, Provider, [facility] [address] [facility] [phone] [place] [address] (Work) [phone] Social History Tobacco Use Types Packs/Day Years Used Date Never Assessed Sex Assigned at Date Recorded Not on file documented as of this encounter Discharge Disposition Disposition Code Departure Means Destination Home or Self Assisted documented in this encounter Plan of Treatment Not on filedocumented as of this encounter Visit Diagnoses Not on filedocumented in this encounter 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
[2021-10-16 09:54] LABS: Abs Immature Grans 0.13 10^3/uL (0.0-0.06); Absolute Basophil Count 0.06 10^3/uL (0.0-0.2); Absolute Eosinophil Count 0.07 10^3/uL (0.0-0.7); Absolute Lymphocyte Count 0.52 10^3/uL (1.2-3.4); Absolute Monocyte Count 0.56 10^3/uL (0.1-0.8); Absolute Neutrophil Count 9.88 10^3/uL (1.2-6.7); Basophils % 0.5; Eosinophils % 0.6; HCT 41.7 % (36.0-46.0); HGB 13.3 g/dL (11.2-15.7); Immature Grans % 1.2; Lymphocytes % 4.6; MCH 33.3 pg (27.0-33.0); MCHC 31.9 % (32.0-36.0); MCV 104 fL (80-95); MPV 9.3 fL (8.0-11.0); Neutrophils % 88.1; Platelet Count 215 10^3/uL (130-400); RDW 14.1 % (11.7-14.6); RDW-SD 54.6 fL; WBC 11.22 10^3/uL (4.4-10.8)
[2021-10-16 10:18] LABS: ALT 127 U/L (14-59); AST 34 U/L (15-37); Albumin 3.4 g/dL (3.4-5.0); Alkaline Phosphatase 76 U/L (46-116); Anion Gap 10.1 mmol/L (3-11); BUN 21 mg/dL (7-18); Bilirubin, Total 0.3 mg/dL (0.2-1.0); CO2 26.9 mmol/L (21.0-32.0); Calcium 9.1 mg/dL (8.5-10.1); Chloride 97 mmol/L (98-107); Estimated GFR 55.14 (mL/min/1.73m2); FREE T4 1.02 ng/dL (0.76-1.46); Glucose 176 mg/dL (74-106); Potassium 4.1 mmol/L (3.5-5.1); Sodium 134 mmol/L (136-145); TSH 0.89 uIU/mL (0.36-3.74); Total Protein 7.2 g/dL (6.4-8.2)
== END 2021-10-16 02:26 | disposition home or self-care (01) ==
LOC: LBO 02:25
PROVIDERS: PCP Nurse Practitioner Family; Visit Provider Internal Medicine Medical Oncology
DX: C34.11 Malignant neoplasm of upper lobe, right bronchus or lung (principal); C79.31 Secondary malignant neoplasm of brain; Z79.899 Other long term (current) drug therapy
CPT/HCPCS: 80053; 83735; 84439; 84443; 85025

== ENCOUNTER 2021-10-30 19:23 | Inpatient (IN) | payer MEDICARE, SELFPAY ==
[2021-10-30] VITALS (35 sets, daily range): BP systolic 101–134; BP diastolic 57–98; PULSE 92–101; RESP 15–31; TEMP 36.7; O2SAT 92–97
--- NOTE | 2021-10-30 19:45 | RT.EKG_ITS ---
APPROVED REPORT Exam: Resting ECG Reason for Exam: weakness Patient Location: E HR:98 bpm ECG Measurements Heart Rate 98 AXIS NM 120 P 75 QRSd 83 QRS 55 QT 345 T 74 QTc 440 Conclusion Sinus rhythm...normal P axis, V-rate 60- 99
--- NOTE | 2021-10-30 19:45 | DI.CT_ITS ---
Exam(s) CT HEAD WO EXAM: CT HEAD WO CLINICAL HISTORY: met cancer to brain, weakness, recent mri. TECHNIQUE: Imaging Protocol: Axial computed tomography images with coronal and sagittal reformatted images were created and reviewed COMPARISON: MR MR BRAIN WO/W from 07/03/2021 MR MR BRAIN WO/W from 10/10/2021 FINDINGS: The examination is limited due to patient motion artifact. Ventricles and Extra axial spaces: Normal in size and morphology for the patient's age. Stable dilata tion of the left lateral ventricle is noted. Hemorrhage: None. Cerebral parenchyma: There are areas of decreased attenuation in the white matter consistent with sma ll vessel ischemic disease. Encephalomalacia is again seen adjacent to the atria of the left lateral ventricle. Midline shift: None. Brainstem/Cerebellum: Normal. Calvarium: There is an old left parietal craniotomy. Visualized Paranasal sinuses/Mastoids: Clear. Soft Tissues: Unremarkable. IMPRESSION: No acute intracranial process. RADIATION DOSE DELIVERED: 783.57mGy.cm Total DLP DATA REPOSITORY: All CT scans at this facility are submitted to the National Radiology Data Registry (NRDR) Dose Index Registry (DIR) with the [employer] (ACR). RADIATION OPTIMIZATION: All CT scans at this facility use at least one of these dose optimization te chniques: automated exposure control; mA and/or kV adjustment per patient size (includes targeted exa ms where dose is matched to clinical indication); or iterative reconstruction.
[2021-10-30 20:05] LABS: Abs Immature Grans 0.17 10^3/uL (0.0-0.06); Absolute Basophil Count 0.03 10^3/uL (0.0-0.2); Absolute Eosinophil Count 0.04 10^3/uL (0.0-0.7); Absolute Lymphocyte Count 0.47 10^3/uL (1.2-3.4); Absolute Monocyte Count 0.53 10^3/uL (0.1-0.8); Absolute Neutrophil Count 7.61 10^3/uL (1.2-6.7); Basophils % 0.3; Eosinophils % 0.5; HCT 43.6 % (36.0-46.0); HGB 14.6 g/dL (11.2-15.7); Immature Grans % 1.9; Lymphocytes % 5.3; MCH 33.1 pg (27.0-33.0); MCHC 33.5 % (32.0-36.0); MCV 99 fL (80-95); MPV 10.4 fL (8.0-11.0); Platelet Count 232 10^3/uL (130-400); RBC 4.41 10^6/uL (3.93-5.22); RDW 14.3 % (11.7-14.6); RDW-SD 51.8 fL; WBC 8.85 10^3/uL (4.4-10.8)
[2021-10-30 20:24] LABS: ALT 12 U/L (14-59); AST 69 U/L (15-37); Albumin 2.9 g/dL (3.4-5.0); Alkaline Phosphatase 79 U/L (46-116); Anion Gap 10.4 mmol/L (3-11); BUN 21 mg/dL (7-18); Bilirubin, Total 0.5 mg/dL (0.2-1.0); CO2 26.6 mmol/L (21.0-32.0); CREATININE 0.8 mg/dL (0.55-1.02); Calcium 9.2 mg/dL (8.5-10.1); Chloride 95 mmol/L (98-107); Glucose 135 mg/dL (74-106); Magnesium 1.9 mg/dL (1.8-2.4); Potassium 4.6 mmol/L (3.5-5.1); Sodium 132 mmol/L (136-145); Total Protein 6.9 g/dL (6.4-8.2); Troponin I 54 ng/L (<or=60)
--- NOTE | 2021-10-30 20:30 | DI.RAD_ITS ---
Exam(s) XR CHEST 2V PA LATERAL EXAM: XR CHEST 2V PA LATERAL CLINICAL HISTORY: altered, cough TECHNIQUE: 2D digital imaging was performed of the chest. Three images were obtained. PA and later al views were obtained. COMPARISON: CT CT CHEST W from 05/23/2021 FINDINGS: MEDIASTINUM: Normal. HEART: Normal. Status post CABG PULMONARY VASCULATURE: Normal. LUNGS: Clear. The lungs are hyperinflated consistent with underlying COPD. Surgical suture material is seen in the left lung. PLEURAL SPACE: No pleural effusion or pneumothorax. BONE:Within normal limits for the patient's age. Sternal wires are in place. OTHER FINDINGS:Normal. IMPRESSION: No acute pulmonary findings. DATA REPOSITORY: RADIATION DOSE DELIVERED:
[2021-10-30 21:17] LABS: Source Nasal/Nares
--- NOTE | 2021-10-30 21:29 | DI.VRAD_ITS ---
PROCEDURE INFORMATION: Exam: CT Head Without Contrast Exam date and time: 10/30/2021 8:22 PM Age: 66 years old Clinical indication: Other: Met cancer to brain weakness, recent mri; Prior surgery; Surgery date: 6+ months; Surgery type: Brain surgery, unknown, PT confused TECHNIQUE: Imaging protocol: Computed tomography of the head without contrast. Radiation optimization: All CT scans at this facility use at least one of these dose optimization techniques: automated exposure control; mA and/or kV adjustment per patient size (includes targeted exams where dose is matched to clinical indication); or iterative reconstruction. COMPARISON: MR BRAIN WO/W 10/10/2021 1:21 PM FINDINGS: Brain: No acute intracranial hemorrhage or mass effect is seen. There is encephalomalacia subjacent to the cranial plate. Residual or recurrent disease is not excluded. There is a region of hypoattenuation in the left occipital lobe on the axial series on images 21-23 of series 3. The linear appearance on the cross reference coronal series favors artifact over regional acute ischemia; however, if there is concern for an acute infarct in this distribution, MRI with diffusion-weighted imaging would be recommended for additional evaluation. There is mild global parenchymal volume loss. Cerebral ventricles: There is ex vacuo dilatation of the posterior body of the left lateral ventricle. There is no hydrocephalus. Paranasal sinuses: The visualized paranasal sinuses appear well-aerated. Mastoid air cells: The mastoid air cells appear well-aerated. Auditory system: The middle ear cavities appear clear. Orbital cavities: The globes and intraorbital structures appear grossly intact. Bones/joints: There is an old left parietal craniotomy defect. No acute skull fracture is seen. Soft tissues: No significant scalp lesion is seen. IMPRESSION: 1. No acute intracranial hemorrhage or mass effect. 2. Old left parietal craniotomy defect with subjacent encephalomalacia. No mass effect is seen in this region although residual or recurrent disease is not excluded. 3. A moderate-sized region of transcortical hypoattenuation in the left occipital lobe on the axial series has a linear appearance on the cross reference coronal series favoring artifact over acute ischemia; however, if there is concern for an acute infarct in this distribution, MRI with diffusion-weighted imaging would be recommended for additional evaluation. Dictated and Authenticated by: Reg Muñoz MD. Ordering:REMI Smith MD
--- NOTE | 2021-10-30 21:29 | ED.GENADUL_ITS ---
Discharge Plan Disposition Patient Disposition: [facility] INPATIENT Condition: Serious Discharge Details Chief Complaint: GenMedical Clinical Impression: Brain cancer, Inability to walk, Weakness Primary Care Provider: Iqra Cardenas ED Provider: Luis Presley Home Meds and New Rx's Prescriptions: No Action atorvastatin 80 mg Tablet 80 mg PO QHS nystatin 100,000 unit/mL Suspension 100,000 unit PO DAILY Rx Instructions: administer 1/2 of dose in each side of the mouth sodium chloride 1 gram Tablet 1 g PO BID prochlorperazine maleate 10 mg Tablet 10 mg PO Q6H PRN PRN folic acid 400 mcg Tablet 400 mcg PO USEASDIRECTD Rx Instructions: takes yearly acetaminophen 500 mg Tablet 1,000 mg PO Q6H PRN ondansetron 8 mg Tablet,Disintegrating 8 mg PO Q8H PRN PRN citalopram 20 mg Tablet 20 mg PO DAILY famotidine 20 mg Tablet 20 mg PO DAILY dexamethasone 2 mg Tablet 4 mg PO DAILY Rx Instructions: start oct 30 and then will be re-evaluated by Marquita LORENZANA omeprazole 20 mg Capsule,Delayed Release(Dr/Ec) 20 mg PO DAILY albuterol sulfate [ProAir HFA] 90 mcg/actuation Hfa Aerosol Inhaler 2 puff INHALATION Q4H PRN PRN fludrocortisone 0.1 mg Tablet 0.1 mg PO DAILY fluticasone furoate-vilanterol [Breo Ellipta] 100-25 mcg/dose Blister With Device 1 inh INHALATION DAILY Medical Decision Making 2134 --66-year-old female with metastatic brain cancer, leptomeningeal lesion, here with inability to ambulate, generalized weakness, and progressive symptoms today, recently on Decadron taper. I spoke with the patient's oncologist, Dr. Morris at [facility], discussed ED presentation course, she has reviewed [facility] records and knows the patient, she recommends giving dexamethasone 10 mg IV and admitting here with plan for MRI of the brain tomorrow morning. CT the head was interpreted by radiology: IMPRESSION: 1. No acute intracranial hemorrhage or mass effect. 2. Old left parietal craniotomy defect with subjacent encephalomalacia. No mass effect is seen in this region although residual or recurrent disease is not excluded. 3. A moderate-sized region of transcortical hypoattenuation in the left occipital lobe on the axial series has a linear appearance on the cross reference coronal series favoring artifact over acute ischemia; however, if there is concern for an acute infarct in this distribution, MRI with diffusion-weighted imaging would be recommended for additional evaluation. Chest x-ray negative. Labs reviewed and nondiagnostic. 2299--I spoke with Dr. Galvin who will admit the patient. Care transitioned to Dr. Galvin. Lab Data Lab results reviewed: Yes I reviewed the patient's lab results. Labs: Laboratory Tests Range/Units 10/30/21 10/30/21 10/30/21 19:55 19:55 21:10 WBC (4.4-10.8) 10^3/uL 8.85 RBC (3.93-5.22) 10^6/uL 4.41 Hgb (11.2-15.7) g/dL 14.6 Hct (36.0-46.0) % 43.6 MCV (80-95) fL 99 H MCH (27.0-33.0) pg 33.1 H MCHC (32.0-36.0) % 33.5 RDW (11.7-14.6) % 14.3 Plt Count (130-400) 10^3/uL 232 MPV (8.0-11.0) fL 10.4 Immature Gran % 1.9 Neutrophils % 86.0 Lymphocytes % 5.3 Monocytes % 6.0 Eosinophils % 0.5 Basophils % 0.3 Nucleated RBC % (0.0-0.3) % 0.0 Absolute Neutrophils (1.2-6.7) 10^3/uL 7.61 H Absolute Lymphocytes (1.2-3.4) 10^3/uL 0.47 L Absolute Monocytes (0.1-0.8) 10^3/uL 0.53 Absolute Eosinophils (0.0-0.7) 10^3/uL 0.04 Absolute Basophils (0.0-0.2) 10^3/uL 0.03 Sodium (136-145) mmol/L 132 L Potassium (3.5-5.1) mmol/L 4.6 Chloride (98-107) mmol/L 95 L Carbon Dioxide (21.0-32.0) mmol/L 26.6 Anion Gap (3-11) mmol/L 10.4 BUN (7-18) mg/dL 21 H Creatinine (0.55-1.02) mg/dL 0.8 Estimated GFR/1.73 m2 (mL/min/1.73m2) >= 60.00 Glucose (74-106) mg/dL 135 H Calcium (8.5-10.1) mg/dL 9.2 Magnesium (1.8-2.4) mg/dL 1.9 Total Bilirubin (0.2-1.0) mg/dL 0.5 AST (15-37) U/L 69 H ALT (14-59) U/L 12 L Alkaline Phosphatase (46-116) U/L 79 Troponin I (<or=60) ng/L 54 Total Protein (6.4-8.2) g/dL 6.9 Albumin (3.4-5.0) g/dL 2.9 L COVID-19 Source Nasal/Nares SARS-CoV-2 (PCR) (Negative) Negative HPI General Mode of arrival: ambulatory . Date/Time Provider Initiated Documentation: 10/30/21 19:28 . Limitations to Documentation: no limitations . Information obtained by: patient and family . HPI Narrative: 66yo f with history of metastatic brain cancer, status post resection and radiation, currently on recently tapered dose of dexamethasone presenting with chief complaint of weakness. Patient has had generalized weakness today with difficulty ambulating. notes she was having some difficulty ambulating yesterday and this is worsened today. She can no longer ambulate. Symptoms are severe. No modifiers. She also has associated headache today as well as vomiting this morning and frequent episodes of solid bowel movements today. Related Data Home Medications Medication Instructions Recorded Confirmed acetaminophen 500 mg tablet 1,000 mg PO Q6H PRN 10/30/21 10/30/21 albuterol sulfate 90 mcg/actuation 2 puff inhalation Q4H PRN PRN 10/30/21 10/30/21 aerosol inhaler (ProAir HFA) atorvastatin 80 mg tablet 80 mg PO QHS 10/30/21 10/30/21 citalopram 20 mg tablet 20 mg PO DAILY 10/30/21 10/30/21 dexamethasone 2 mg tablet 4 mg PO DAILY 10/30/21 10/30/21 famotidine 20 mg tablet 20 mg PO DAILY 10/30/21 10/30/21 fludrocortisone 0.1 mg tablet 0.1 mg PO DAILY 10/30/21 10/30/21 fluticasone furoate 100 1 inh inhalation DAILY 10/30/21 10/30/21 mcg-vilanterol 25 mcg/dose inhalation powder (Breo Ellipta) folic acid 400 mcg tablet 400 mcg PO USEASDIRECTD 10/30/21 10/30/21 nystatin 100,000 unit/mL oral 100,000 unit PO DAILY 10/30/21 10/30/21 suspension omeprazole 20 mg capsule,delayed 20 mg PO DAILY 10/30/21 10/30/21 release ondansetron 8 mg disintegrating 8 mg PO Q8H PRN PRN 10/30/21 10/30/21 tablet prochlorperazine maleate 10 mg 10 mg PO Q6H PRN PRN 10/30/21 10/30/21 tablet sodium chloride 1 gram tablet 1 g PO BID 10/30/21 10/30/21 Allergies Allergy/AdvReac Type Severity Reaction Status Date / Time No Known Allergies Allergy Unverified 10/30/21 19:36 General Stated Complaint: GenMedical DELANO: 3 Review of Systems All systems reviewed & are unremarkable except as noted in HPI and below Constitutional Constitutional: Denies fever(s) Cardiovascular Cardiovascular: Denies chest pain Respiratory Respiratory: Denies cough Neurologic Neurologic: Reports as per HPI PFSH All Active Problems (Updated 10/30/21 @ 23:06 by Luis Presley MD) Brain cancer (Chronic) Inability to walk (Acute) Weakness (Acute) Medical History Brain cancer Lung cancer Surgical History Hx of CABG Social History Smoking/Tobacco Use Status: Former Tobacco Use Smoking risk assessment performed?: Yes Alcohol Intake: former Drug use: Never Substance use type: does not use Do you feel safe at home: Yes Do you feel safe in your relationship?: Yes Exam Const General: cooperative and no acute distress HENMT Head: atraumatic Mouth: moist mucous membranes Eyes Conjunctivae: normal conjunctivae Sclera: normal sclerae EOM: EOM intact bilaterally Resp Effort & Inspection: cough Auscultation: clear to auscultation bilaterally, no rales, no rhonchi and no wheezes Cardio Rate: regular rate and not tachycardic Rhythm: regular rhythm GI Palpation: soft, not firm, no guarding, no masses, not rigid and nontender Skin General skin exam: no rashes or lesions noted Neuro General: patient alert, patient awake, patient oriented x3 and tone normal Cranial Nerves: PERRL, facial strength normal, tongue midline, able to rotate head bilaterally, able to elevate shoulders bilaterally and symmetric palate elevation Cognition: normal cognition Speech: speech normal Motor: strength abnormal (1/5 bilateral LEs, 5/5 bilateral UEs) Sensory Exam: no sensory deficits noted Extrem General: no edema Psych Appearance: grossly normal Mental Status: mental status grossly normal Course Vital Signs Vital signs: Vital Signs Temperature 36.7 C 10/30/21 19:32 Pulse 99 H 10/30/21 19:32 Respiratory Rate 24 10/30/21 19:32 Blood Pressure 105/58 L 10/30/21 19:32 Pulse Oximetry 95 10/30/21 19:32 Temperature 36.7 C 10/30/21 19:32 Temperature Source Skin 10/30/21 19:32 Pulse 98 H 10/30/21 20:45 Pulse 98 H 10/30/21 20:45 Respiratory Rate 27 H 10/30/21 20:45 Respiratory Effort Non-Labored 10/30/21 19:56 Respiratory Depth Normal 10/30/21 19:56 Blood Pressure 127/82 10/30/21 20:45 Blood Pressure Mean 92 10/30/21 20:45 Pulse Oximetry 96 10/30/21 20:30 Pain Level 0 10/30/21 19:32 Lab/Test Results Lab/Test Results: Laboratory Tests Range/Units 10/30/21 10/30/21 10/30/21 19:55 19:55 21:10 WBC (4.4-10.8) 10^3/uL 8.85 RBC (3.93-5.22) 10^6/uL 4.41 Hgb (11.2-15.7) g/dL 14.6 Hct (36.0-46.0) % 43.6 MCV (80-95) fL 99 H MCH (27.0-33.0) pg 33.1 H MCHC (32.0-36.0) % 33.5 RDW (11.7-14.6) % 14.3 Plt Count (130-400) 10^3/uL 232 MPV (8.0-11.0) fL 10.4 Immature Gran % 1.9 Neutrophils % 86.0 Lymphocytes % 5.3 Monocytes % 6.0 Eosinophils % 0.5 Basophils % 0.3 Nucleated RBC % (0.0-0.3) % 0.0 Absolute Neutrophils (1.2-6.7) 10^3/uL 7.61 H Absolute Lymphocytes (1.2-3.4) 10^3/uL 0.47 L Absolute Monocytes (0.1-0.8) 10^3/uL 0.53 Absolute Eosinophils (0.0-0.7) 10^3/uL 0.04 Absolute Basophils (0.0-0.2) 10^3/uL 0.03 Sodium (136-145) mmol/L 132 L Potassium (3.5-5.1) mmol/L 4.6 Chloride (98-107) mmol/L 95 L Carbon Dioxide (21.0-32.0) mmol/L 26.6 Anion Gap (3-11) mmol/L 10.4 BUN (7-18) mg/dL 21 H Creatinine (0.55-1.02) mg/dL 0.8 Estimated GFR/1.73 m2 (mL/min/1.73m2) >= 60.00 Glucose (74-106) mg/dL 135 H Calcium (8.5-10.1) mg/dL 9.2 Magnesium (1.8-2.4) mg/dL 1.9 Total Bilirubin (0.2-1.0) mg/dL 0.5 AST (15-37) U/L 69 H ALT (14-59) U/L 12 L Alkaline Phosphatase (46-116) U/L 79 Troponin I (<or=60) ng/L 54 Total Protein (6.4-8.2) g/dL 6.9 Albumin (3.4-5.0) g/dL 2.9 L COVID-19 Source Nasal/Nares
--- NOTE | 2021-10-30 21:38 | DI.VRAD_ITS ---
PROCEDURE INFORMATION: Exam: XR Chest Exam date and time: 10/30/2021 8:52 PM Age: 66 years old Clinical indication: Patient HX: Cough, AMS TECHNIQUE: Imaging protocol: Radiologic exam of the chest. Views: 2 views. COMPARISON: CT CHEST W 05/23/2021 11:01 AM FINDINGS: Lungs: There is surgical suture material projecting over the left upper lung zone. No pulmonary consolidation is seen. Pleural spaces: No pleural effusion or pneumothorax is demonstrated. Heart/Mediastinum: Heart size is normal. There has been a prior median sternotomy. Bones/joints: The visualized bony structures appear grossly intact, as seen. Degenerative changes are noted at the right and left shoulder joints. IMPRESSION: No active disease is seen in the chest. Dictated and Authenticated by: Reg Muñoz MD. Ordering:REMI Smith MD
[2021-10-30] MEDS: Dexamethasone 10 MG/ML VIAL IVP (21:41)
[2021-10-30 22:07] LABS: COVID-19 PCR Negative (Negative)
--- NOTE | 2021-10-30 23:11 | W.PM.HP.N ---
Date of service: 10/30/21 Time of Service: 23:11 Assessment and Plan Assessment and plan (1) Weakness: Status: Acute Assessment and plan: Weakness. I suspect this is in fact steroid withdrawal syndrome, we shall see how she responds to pulse Dexa. Suffice to say no other etiology evident at present. I would wish to complete w/u with U/A, UTI could manifest as such. Reviewed ADs, states they have not discussed. I encouraged them to do so, will default to Full Code at present. History of Present Illness History of Present Illness Chief Complaint: weakness Narrative: 66 female with h/o brain cancer, s/p resection and XRT, on chronic steroids, undergoing slow taper over past few monthhs. Over past week patient has become progressively weaker, to the point that today she can hardly walk at all (usually requires assist). Had some CARPENTER, few episodes of vomiting earlier in the day, and also atypically several bowel movements, though well formed. No abd pian. In ER w/u is generally unrevealing and head CT shows no acute findings (there is one area of presumed artefact left occipital lobe, but cannot exclude stroke). Patient given Dexa 10 IV and I was asked to evaluate for admission. Notably states that patient had similar trouble during earlier trial taper of steroids. Review of Systems Narrative: per HPI PFSH All Active Problems Brain cancer (Chronic) Inability to walk (Acute) Weakness (Acute) Medical History Brain cancer Lung cancer Surgical History Hx of CABG Social History Smoking/Tobacco Use Status: Former Tobacco Use Smoking risk assessment performed?: Yes Alcohol Intake: former Drug use: Never Substance use type: does not use Do you feel safe at home: Yes Do you feel safe in your relationship?: Yes Meds Allergies and Home Medications Allergies Allergy/AdvReac Type Severity Reaction Status Date / Time No Known Allergies Allergy Unverified 10/30/21 19:36 Home Medications Medication Instructions Recorded Confirmed Type acetaminophen 500 mg tablet 1,000 mg PO Q6H PRN 10/30/21 10/30/21 History albuterol sulfate 90 mcg/actuation 2 puff inhalation Q4H PRN PRN 10/30/21 10/30/21 History aerosol inhaler (ProAir HFA) atorvastatin 80 mg tablet 80 mg PO QHS 10/30/21 10/30/21 History citalopram 20 mg tablet 20 mg PO DAILY 10/30/21 10/30/21 History dexamethasone 2 mg tablet 4 mg PO DAILY 10/30/21 10/30/21 History famotidine 20 mg tablet 20 mg PO DAILY 10/30/21 10/30/21 History fludrocortisone 0.1 mg tablet 0.1 mg PO DAILY 10/30/21 10/30/21 History fluticasone furoate 100 1 inh inhalation DAILY 10/30/21 10/30/21 History mcg-vilanterol 25 mcg/dose inhalation powder (Breo Ellipta) folic acid 400 mcg tablet 400 mcg PO USEASDIRECTD 10/30/21 10/30/21 History nystatin 100,000 unit/mL oral 100,000 unit PO DAILY 10/30/21 10/30/21 History suspension omeprazole 20 mg capsule,delayed 20 mg PO DAILY 10/30/21 10/30/21 History release ondansetron 8 mg disintegrating 8 mg PO Q8H PRN PRN 10/30/21 10/30/21 History tablet prochlorperazine maleate 10 mg 10 mg PO Q6H PRN PRN 10/30/21 10/30/21 History tablet sodium chloride 1 gram tablet 1 g PO BID 10/30/21 10/30/21 History Exam Narrative Exam Narrative: 101-118/83-98. 96, 36.7, 25, 95% RA. HEENT s/p left parietal craniotomy; neck supple; lungs clear; heart RRR; abdomen soft and NT; extremities w/o edema; neuro Ox1-2 (knows name, thinks we're in [place], date as November 24 2021), PERRL:, lou intact, EOMI, smile symmetric, tongue midline, motor 5/5 grossly Results Labs Result diagrams: 10/30/21 19:55 10/30/21 19:55 Labs: Laboratory Results - last 24 hr 08/01/22 08/01/22 08/01/22 19:55 19:55 21:10 WBC 8.85 RBC 4.41 Hgb 14.6 Hct 43.6 MCV 99 H MCH 33.1 H MCHC 33.5 RDW 14.3 Plt Count 232 MPV 10.4 Immature Gran % 1.9 Neutrophils % 86.0 Lymphocytes % 5.3 Monocytes % 6.0 Eosinophils % 0.5 Basophils % 0.3 Nucleated RBC % 0.0 Absolute Neutrophils 7.61 H Absolute Lymphocytes 0.47 L Absolute Monocytes 0.53 Absolute Eosinophils 0.04 Absolute Basophils 0.03 Sodium 132 L Potassium 4.6 Chloride 95 L Carbon Dioxide 26.6 Anion Gap 10.4 BUN 21 H Creatinine 0.8 Estimated GFR/1.73 m2 >= 60.00 Glucose 135 H Calcium 9.2 Magnesium 1.9 Total Bilirubin 0.5 AST 69 H ALT 12 L Alkaline Phosphatase 79 Troponin I 54 Total Protein 6.9 Albumin 2.9 L COVID-19 Source Nasal/Nares SARS-CoV-2 (PCR) Negative Last Vital Signs Temp 36.7 C 10/30/21 19:32 Pulse 96 H 10/30/21 21:15 Resp 25 H 10/30/21 21:20 BP 118/98 H 10/30/21 21:15 Pulse Ox 95 10/30/21 21:20
[2021-10-31] VITALS (9 sets, daily range): BP systolic 115–145; BP diastolic 69–99; PULSE 84–118; RESP 17–28; TEMP 36.1–36.6; O2SAT 96–98
[2021-10-31 00:23] LABS: Bilirubin Negative (Negative); Blood Negative (Negative); Clarity Sl Cloudy (Clear); Glucose Negative (Negative); Ketones Negative (Negative); Leukocyte Esterase Negative (Negative); Nitrite Negative (Negative); Specific Gravity >= 1.030 (1.005-1.025); Urobilinogen 0.2 EU/dL (Up TO 0.2); pH 5.5 (5-8)
[2021-10-31 00:31] LABS: Epithelial Cells Many HPF (Negative); RBC 0-2 HPF (0-2); WBC 0-2 HPF (0-5)
[2021-10-31 00:32] LABS: Bacteria Moderate HPF (Negative); C & S Indicated? No/Sq. Contamination; Casts Negative LPF (Negative); Crystals Negative HPF (Negative); Mucus Negative (Negative)
[2021-10-31] MEDS: Fludrocortisone 0.1 MG TAB PO (08:19)
[2021-10-31] MEDS: Nystatin 500000 UNITS/5 ML SUSP 5ML CUP 100000 UNITS PO (08:19)
[2021-10-31] MEDS: Dexamethasone 4 MG TAB PO ×2 (08:20→20:54)
[2021-10-31] MEDS: Citalopram 20 MG TAB PO (08:20)
[2021-10-31] MEDS: Famotidine 20 MG TAB PO (08:20)
[2021-10-31] MEDS: Omeprazole 20 MG CAPCR PO (08:20)
[2021-10-31] MEDS: Budesonide/Formoterol 80/4.5 6.9 GM 60 PUFF INH IH ×2 (08:47→20:55)
[2021-10-31 10:37] LABS: Lab Add On Test DONE
[2021-10-31 11:08] LABS: Creatine Kinase 101 U/L (26-192)
--- NOTE | 2021-10-31 11:09 | PDOC.CMIN ---
- If Service Date Differs Date of service: 10/31/21 Time of Service: 11:10 Care Management Initial Assess REASON FOR HOSPITALIZATION:: weakness PAST MEDICAL HISTORY/PAST SURGICAL HISTORY:: All Active Problems. Brain cancer (Chronic). Inability to walk (Acute). Weakness (Acute). Medical History. Brain cancer. Lung cancer. Surgical History. Hx of CABG PREVIOUS FUNCTIONAL STATUS/SOCIAL/FAMILY SUPPORTS:: Phyllis lives in [place], [place] with her s/o, Kendall, who is very supportive, and is with her 22/10. Phyllis requires some assistance with ADL's, which Kendall is currently providing. CURRENT FUNCTIONAL STATUS:: Phyllis was sitting up in her chair when CM met with her. Her was by her side. Phyllis stated that she worked with PT today, and she did very well. Kendall was also very pleased with her progress, and stated that she should be able to return home if she continues to improve. Phyllis is hoping to work with PT on stairs tomorrow, as they have a flight of stairs to go up to the main living floor of their house. CM will continue to follow. ADVANCE DIRECTIVES:: None on file, CM will discuss and offer forms. Palliative Care consult ordered. Has patient been provided with info about the portal/API?: Yes Did the patient sign up for the portal?: No CODE STATUS:: Full Code INSURANCE COVERAGE / FINANCIAL ISSUES:: MCR CURRENT HOME/COMMUNITY SERVICES/EQUIPMENT:: No current services or equipment. PRIMARY CARE PHYSICIAN:: Iqra Cardenas POTENTIAL DISCHARGE NEEDS:: Evaluations for further needs, follow up appointments. PATIENT/FAMILY EDUCATION NEEDS:: Review discharge instructions and limitations, discussion of self care needs including ask me three. ANTICIPATED BARRIERS TO DISCHARGE:: None identified. TRANSPORTATION:: Via private vehicle by family. PLAN:: Phyllis will likely return home when medically cleared. She may benefit from services, if indicated. She will follow up with her PCP and discharge plan of care. CM will continue to follow.
--- NOTE | 2021-10-31 14:21 | IN_ITS ---
Date of service: 10/31/21 Time of Service: 14:21 PT Notes Visit Reasons: Weakness Physical Therapy Inpatient Initial Evaluation Date: 10/31/2021 Referring Doctor: Martin Galvin MD PT Orders: PT CONSULT: Exacerbation Chronic Cond Precautions: Fall. Standard. Activity as tolerated. Patient Profile/Admitting Diagnosis: Phyllis is a 66-year-old female with past medical history significant for brain carcinoma status post resection and radiation therapy who has been on chronic steroids, currently being tapered, who presented to the ED on 10/30/2021 due to inability to ambulate, generalized weakness, and increased confusion. Patient is diagnosed with weakness related to steroid withdrawal syndrome with referral to physical therapy for functional mobility training and/or progression. PMHX: All Active Problems? Brain cancer (Chronic) Inability to walk (Acute) Weakness (Acute) Medical History? Brain cancer Lung cancer Surgical History? Hx of CABG Social History/Home Situation: Patient lives with significant other Kendall in a private multilevel home with 12 steps to enter with 1 rail. Kendall has been providing 22/10 care for patient with moderate level for all bed mobility, transfers, and ambulation of assist using no assistive device due to tall carpeting at home. Distance from bed to bathroom is about 20 feet, to kitchen about 75 feet. Equipment Owned/DME: None Subjective: Patient teary-eyed. SO Kendall states that patient had been increasingly depressed because of her worsening condition. She denies headache and chest pain but did report pain in B legs and back with adjustment of head/foot of bed. Patient and SO hope to get additional help at home in terms of bathing, dressing, and grooming. They are agreeable to services for needed support. Objective: General Observation: Supine in bed. Cancer-related hair loss noted. Cachexic. B LE muscle mass decreased. Mental Status: Alert and oriented as to person, place, time, and purpose. Needed visual and tactile cueing with walker management. Pain: Denies Vital Signs: WNL as closely monitored by nursing staff ROM: Right Upper Extremity: Shoulder Flexion limited to about 90 degrees. Shoulder abduction limited to about 80 degrees. Elbow flexion WFL. Wrist flexion WFL. Functional opening and closing of hand WFL. Left Upper Extremity: Shoulder Flexion limited to about 90 degrees. Shoulder abduction limited to about 80 degrees. Elbow flexion WFL. Wrist flexion WFL. Functional opening and closing of hand WFL. Right Lower Extremity: Hip flexion WFL. Hip abduction WFL. Knee flexion WFL. Ankle dorsiflexion to neutral only. Ankle plantarflexion WFL. Left Lower Extremity: Hip flexion WFL. Hip abduction WFL. Knee flexion WFL. Ankle dorsiflexion WFL. Ankle plantarflexion WFL. Strength: Right Upper Extremity: Shoulder flexors 3-/5. Shoulder abductors 3-/5. Elbow flexors 4-/5. Elbow extensors 4-/5. Fruit Thinner strong. Left Upper Extremity: Shoulder flexors 3-/5. Shoulder abductors 3-/5. Elbow flexors 4-/5. Elbow extensors 4-/5. Fruit Thinner strong. Right Lower Extremity: Hip flexors 4-/5. Hip abductors 4-/5. Knee flexors 4-/5. Knee extensors 4-/5. Ankle dorsiflexors 3-/5. Ankle plantarflexors 4-/5. Left Lower Extremity: Hip flexors 4-/5. Hip abductors 4-/5. Knee flexors 4-/5. Knee extensors 4-/5. Ankle dorsiflexors 3-/5. Ankle plantarflexors 4-/5. Bed Mobility/Transfers: Rolling to side minimal assist Supine to sit moderate assist Sit to stand minimal assist with moderate verbal/tactile cues needed for hand placement Stand to sit minimal assist with moderate verbal/tactile cues needed for hand placement Bed to reclining chair minimal assist with moderate verbal/tactile cues needed for hand placement Gait: Instructed patient with level surface ambulation of 10 feet + 5 feet + 30 feet requiring minimal assist. Andra decreased. Step height decreased. Step length decreased. No loss of balance. No shortness of breath. SO Kendall happy abut how much she is able to now than when she came in yesterday. Balance: Static Sitting: Good Dynamic Sitting: Good Static Standing: Fair Dynamic Standing: Fair Special Tests: Mobility Limitations Standardized Measure [facility]-P[facility] 6 clicks Basic Mobility Inpatient Short Form: Raw Score: 15 CMS Score: 58% deficit Informed Consent/Education: Patient was instructed in purpose of PT consult and plan of care. Agreeable to proceed with established PT POC to achieve personal goals. Assessment: Assess for safety of 4WW use as gonzales has high carpeting at home. Patient will benefit from HH PT/OT assessment to identify home safety and equipment ne eds to reduce fall risk at home. SO Kendall is hoping to install a chait lift at the entrance steps but there are some steps inside the house that patient may need training for prior to going home. Patient presents with clinical signs and symptoms consistent with current/admitting diagnoses that have resulted to mobility limitations, gait instability, generalized weakness, and overall ADL decline as demonstrated by the following impairment level findings: 1. Decreased strength to B UE/LE major muscle groups 2. Impaired sitting/standing balance 3. Impaired activity tolerance 4. Limitation of joint range of motion in B shoulders and ankles 5. Impaired safety awareness 6. Motor planning issue/apraxia Impairments are contributing to the following functional limitations: 1. Decline in bed mobility skills 2. Decline in transfer skills 3. Difficulty with ambulation without assistive device and physical assistance 4. Increased completion time for mobility ADL performance 5. Increased risk for falls 6. Difficulty with managing steps alone safely Patient is assessed as a 09608 high complexity based on the following: History: 66-year-old female with past medical history as indicated above Examination: Demonstrable impairment in strength, balance, and mobility level with underlying impairments and functional limitations as exhibited above as well as deficit score of 58% utilizing the [facility] Mobility Inpatient Short Form Presentation: Evolving Decision Makin high complexity Goals: Goals X1 week 1. Supine-Sit independent 2. Sit-Supine independent 3. Sit-Stand independent 4. Stand-Sit stand by assist with 4WW 5. Bed-Chair independent with 4WW 6. Chair-Bed independent with with 4WW 7. Independent gait on level surface with use of with 4WW for at least 100 feet without report of pain nor dyspnea 8. Independent stair negotiation while holding onto 1 rail for at least 5 steps without report of pain nor dyspnea 9. Good static and dynamic standing balance/tolerance Plan of Care/Treatment Plan: 1-2x/day, 7 days/week x 1 week. Plan of care has been reviewed with the STREET LIGHT REPAIRER HELPER providing the service under Physical Therapy direction. Initiate Physical Therapy intervention for pain management as needed, strengthening, bed mobility, transfers, gait, stairs, balance training, and use of assistive device. DISCHARGE RECOMMENDATIONS: [] Home with no services [] [X] Home with services. Home when medically cleared by hospitalist. Patient will benefit from home health PT services in order to progress mobility level using least restrictive assistive ambulatory device, assess home safety, identify additional equipment needs, and establish a functional maintenance program that will increase ability of patient to remain at home. Will need OT evalaution for self-care needs assessment. [] Home with outpatient PT [] [] SNF for continued rehabilitation [] [] [facility] [] [] SNF versus LTC based on ability to participate and progress [] TREATMENT CODE/TIME: 13610 x 25 minutes, 31928 x 24 minutes beginning at 14:21 PM. Thank you for the opportunity to participate in the care of this patient. Liliana Acharya PT, DPT, CLT [facility] [place], [place]
--- NOTE | 2021-10-31 16:03 | W.PM.PROGNOT ---
Date of Service Date of service: 10/31/21 Time of Service: 16:05 Assessment and Plan Assessment and plan (1) Acute adrenal insufficiency: Status: Acute Assessment and plan: Doing better today. Will start to slowly taper - will plan for dexamethasone 3 mg PO BID starting tomorrow am. Continues working with PT. (2) Ambulatory dysfunction: Status: Acute Assessment and plan: Due to above As above (3) Metastatic non-small cell lung cancer: Status: Acute Assessment and plan: Last MRI done in 10/20 showing a stable brain metastasis. At this point, I do not think that new imaging is warranted. Follow up as outpatient. (4) COPD (chronic obstructive pulmonary disease): Assessment and plan: Not in acute exacerbation. Continue outpatient therapy (5) Thrush: Status: Acute Assessment and plan: Continue nystatin (6) DVT prophylaxis: Status: Acute Assessment and plan: SC enoxaparin (7) Discharge planning issues: Status: Acute Assessment and plan: Full code Palliative care consulted. PT consulted. Subjective Subjective Interval history since last seen: Ms Richardson is feeling better today. She is stronger. There has not been any diarrhea, nausea, or vomiting today. She has tolerated PO today. She was able to walk today, which she was not able to yesterday. She is still weak, though. Exam Narrative Exam Narrative: General: Pleasant tired-appearing middle-aged female, A&Ox3, shaky when she tries to sit herself up in a chair HEENT: EOMI, MMM, thrush Heart: RRR, no m/r/g Lungs: rhonchi and rales B, coughs occasionally (chronic, per ) Abdomen: soft, nontender, nondistended Extremities: no edema Objective Last Vital Signs Temp 36.6 C 10/31/21 07:46 Pulse 84 10/31/21 07:46 Resp 17 10/31/21 07:46 BP 131/82 10/31/21 07:46 Pulse Ox 96 10/31/21 07:46 Laboratory Results - last 24 hr 10/30/21 10/30/21 10/30/21 10:55 10:55 19:55 WBC RBC Hgb Hct MCV MCH MCHC RDW Plt Count MPV Immature Gran % Neutrophils % Lymphocytes % Monocytes % Eosinophils % Basophils % Nucleated RBC % Absolute Neutrophils Absolute Lymphocytes Absolute Monocytes Absolute Eosinophils Absolute Basophils Sodium 132 L Potassium 4.6 Chloride 95 L Carbon Dioxide 26.6 Anion Gap 10.4 BUN 21 H Creatinine 0.8 Estimated GFR/1.73 m2 >= 60.00 Glucose 135 H Calcium 9.2 Magnesium 1.9 Total Bilirubin 0.5 AST 69 H ALT 12 L Alkaline Phosphatase 79 Creatine Kinase 101 Troponin I 54 Total Protein 6.9 Albumin 2.9 L Urine Color Urine Clarity Urine pH Ur Specific [place] Urine Protein Urine Ketones Urine Blood Urine Nitrite Urine Bilirubin Urine Urobilinogen Ur Leukocyte Esterase Urine RBC Urine WBC Ur Epithelial Cells Urine Crystals Urine Bacteria Urine Casts Urine Mucus Ur Culture Indicated? Urine Glucose COVID-19 Source SARS-CoV-2 (PCR) Add-On Test Request DONE 10/30/21 10/30/21 10/31/21 19:55 21:10 00:15 WBC 8.85 RBC 4.41 Hgb 14.6 Hct 43.6 MCV 99 H MCH 33.1 H MCHC 33.5 RDW 14.3 Plt Count 232 MPV 10.4 Immature Gran % 1.9 Neutrophils % 86.0 Lymphocytes % 5.3 Monocytes % 6.0 Eosinophils % 0.5 Basophils % 0.3 Nucleated RBC % 0.0 Absolute Neutrophils 7.61 H Absolute Lymphocytes 0.47 L Absolute Monocytes 0.53 Absolute Eosinophils 0.04 Absolute Basophils 0.03 Sodium Potassium Chloride Carbon Dioxide Anion Gap BUN Creatinine Estimated GFR/1.73 m2 Glucose Calcium Magnesium Total Bilirubin AST ALT Alkaline Phosphatase Creatine Kinase Troponin I Total Protein Albumin Urine Color Yellow Urine Clarity Sl Cloudy Urine pH 5.5 Ur Specific [place] >= 1.030 H Urine Protein 30 H Urine Ketones Negative Urine Blood Negative Urine Nitrite Negative Urine Bilirubin Negative Urine Urobilinogen 0.2 Ur Leukocyte Esterase Negative Urine RBC 0-2 Urine WBC 0-2 Ur Epithelial Cells Many Urine Crystals Negative Urine Bacteria Moderate Urine Casts Negative Urine Mucus Negative Ur Culture Indicated? No/Sq. Contamination Urine Glucose Negative COVID-19 Source Nasal/Nares SARS-CoV-2 (PCR) Negative Add-On Test Request
[2021-10-31] MEDS: Nystatin POWDER 60 GM JAR TP ×2 (16:46→20:54)
[2021-10-31] MEDS: Enoxaparin 40 MG/0.4 ML SYR SC (18:22)
[2021-10-31] MEDS: Atorvastatin 40 MG TAB 80 MG PO (20:54)
[2021-11-01 07:00] LABS: Platelet Count 270 10^3/uL (130-400)
[2021-11-01 07:17] LABS: Anion Gap 8.4 mmol/L (3-11); BUN 20 mg/dL (7-18); CO2 26.6 mmol/L (21.0-32.0); CREATININE 0.7 mg/dL (0.55-1.02); Calcium 9.2 mg/dL (8.5-10.1); Chloride 94 mmol/L (98-107); Glucose 157 mg/dL (74-106); Magnesium 1.8 mg/dL (1.8-2.4); Potassium 4.2 mmol/L (3.5-5.1); Sodium 129 mmol/L (136-145)
[2021-11-01 07:50] VITALS: BP 131/79; PULSE 69; RESP 21; TEMP 36.5; O2SAT 96
[2021-11-01] MEDS: Budesonide/Formoterol 80/4.5 6.9 GM 60 PUFF INH IH ×2 (08:19→19:35)
[2021-11-01] MEDS: Omeprazole 20 MG CAPCR PO (08:27)
[2021-11-01] MEDS: Dexamethasone 1 MG TAB 3 MG PO ×2 (08:27→19:35)
[2021-11-01] MEDS: Nystatin POWDER 60 GM JAR TP ×2 (08:27→19:34)
[2021-11-01] MEDS: Nystatin 500000 UNITS/5 ML SUSP 5ML CUP 100000 UNITS PO (08:27)
[2021-11-01] MEDS: Citalopram 20 MG TAB PO (08:28)
[2021-11-01] MEDS: Fludrocortisone 0.1 MG TAB PO (08:28)
[2021-11-01] MEDS: Famotidine 20 MG TAB PO (08:28)
[2021-11-01] MEDS: Salt Supplement (BUFFERED) TAB 2 TAB PO (12:51)
--- NOTE | 2021-11-01 15:29 | W.PM.PROGNOT ---
Date of Service Date of service: 11/01/21 Time of Service: 15:29 Assessment and Plan Assessment and plan (1) Acute adrenal insufficiency: Status: Acute Assessment and plan: Improving. [place] to be due to rapid decrease of dose in the course of tapering outpatient dexamethasone. Continue dexamethasone 3 mg PO BID. Will consult endocrinology for recommendations on taper. Continues working with PT. (2) Ambulatory dysfunction: Status: Acute Assessment and plan: Due to above As above (3) Chronic hyponatremia: Assessment and plan: acute on chronic - supplement with salt tablets (takes at home). recheck in am. (4) Metastatic non-small cell lung cancer: Status: Acute Assessment and plan: Last MRI done in 10/20 showing a stable brain metastasis. At this point, I do not think that new imaging is warranted. Follow up as outpatient. (5) COPD (chronic obstructive pulmonary disease): Assessment and plan: Not in acute exacerbation. Continue outpatient therapy (6) Thrush: Status: Acute Assessment and plan: Continue nystatin (dose changed to 5x daily). (7) DVT prophylaxis: Status: Acute Assessment and plan: SC enoxaparin (8) Discharge planning issues: Status: Acute Assessment and plan: Full code Palliative care consulted. PT consulted. Admit to inpatient status. Subjective Subjective Interval history since last seen: Phyllis feels better today. Well, I'm alive! Per nursing, she has more strength today. She denies dizziness, chest pain, shortness of breath, nausea. She still does not quite feel well enough to go home. Exam Narrative Exam Narrative: General: Pleasant tired-appearing middle-aged female, A&Ox3, looks better - quicker to respond. HEENT: EOMI, MMM, oral thrush Heart: RRR, no m/r/g Lungs: rhonchi and rales B Abdomen: soft, nontender, nondistended Extremities: no edema Objective Last Vital Signs Temp 36.5 C 11/01/21 07:50 Pulse 69 11/01/21 07:50 Resp 21 11/01/21 07:50 BP 131/79 11/01/21 07:50 Pulse Ox 96 11/01/21 07:50 Laboratory Results - last 24 hr 11/01/21 11/01/21 06:20 06:20 Plt Count 270 Sodium 129 L Potassium 4.2 Chloride 94 L Carbon Dioxide 26.6 Anion Gap 8.4 BUN 20 H Creatinine 0.7 Estimated GFR/1.73 m2 >= 60.00 Glucose 157 H Calcium 9.2 Magnesium 1.8
[2021-11-01 15:53] VITALS: BP 136/80; PULSE 94; RESP 22; TEMP 36.9; O2SAT 95
--- NOTE | 2021-11-01 16:21 | CMPROGNOTE_ITS ---
- If Service Date Differs Date of service: 11/01/21 Time of Service: 16:21 Care Management Progress Note S/O: Phyllis was lying in bed when CM met with her. She reported that she is feeling better today, and has worked with PT. She did not recall if she walked up/down the stairs with PT, which she had previously stated was an area of concern, as she has a flight of stairs at home to walk up. Per MD, she will remain at [facility] and will be transitioned to inpatient due to her adrenal insufficiency. She will likely be referred to endocrinology upon discharge. 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 CM will continue to follow. A: Phyllis is a 66 year old female admitted to [facility] on 10/30/21 with weakness. P: Phyllis will likely return home when medically cleared. She may benefit from HH services, if indicated. She will follow up with her PCP and discharge plan of care. CM will continue to follow.
--- NOTE | 2021-11-01 16:32 | PT.INTREAT ---
Date of service: 11/01/21 Time of Service: 16:32 PT Notes Visit Reasons: Weakness Physical Therapy Inpatient Treatment Note Date: 11/01/2021 Precautions: Fall. Standard. Activity as tolerated. Subjective: Agreeable to PT session. Feels much better and much stronger than a few days back. Hopeful that she can go home tomorrow if medically cleared. Reported moderate shortness of breath after ambulation activity today that subsided with rest. Objective: General Observation: Supine in bed.? Cancer-related hair loss noted.? Cachexic.? B LE muscle mass decreased. Mental Status: Alert and oriented as to person, place, time, and purpose. Needed visual and tactile cueing with walker management. Pain: Denies Vital Signs: WNL as closely monitored by nursing staff Bed Mobility/Transfers: Sit to stand stand by assist with verbal/tactile cues needed for hand placement Stand to sit stand by assist with verbal/tactile cues needed for hand placement Gait: Instructed patient with level surface ambulation of 75 feet + 75 feet requiring contact guard assist. Andra decreased. Step height decreased. Step length decreased.? No loss of balance.? Moderate shortness of breath that resolved with seated rest.? Balance: Static Sitting: Good Dynamic Sitting: Good Static Standing: Fair Dynamic Standing: Fair Assessment: Increased ambulation tolerance today compared to yesterday. Will benefit from use of 4WW for facilitated mobility performance over floor surface with high carpeting at home.? May use front-wheeled walker here for level surface ambulation as 4WW tend to move faster than she would want it to. Patient will benefit from HH PT/OT assessment to identify home safety and equipment needs to reduce fall risk at home.? DISCHARGE RECOMMENDATIONS: [] ? Home with no services [] [X] ? Home with services.? Home when medically cleared by hospitalist.? Patient will benefit from home health PT/OT services in order to progress mobility level using least restrictive assistive ambulatory device, assess home safety, identify additional equipment needs, and establish a functional maintenance program that will increase ability of patient to remain at home.? Will need OT evalaution for self-care needs assessment. [] ? Home with outpatient PT [] [] ? SNF for continued rehabilitation [] [] ? Group Home Care [] [] ? SNF versus LTC based on ability to participate and progress [] TREATMENT CODE/TIME: 06209 x 23 minutes beginning at 16:32 PM.
[2021-11-01] MEDS: Atorvastatin 40 MG TAB 80 MG PO (19:35)
[2021-11-01] MEDS: Nystatin 500000 UNITS/5 ML SUSP 5ML CUP PO (22:51)
[2021-11-01 23:05] VITALS: BP 179/93; PULSE 77; RESP 22; TEMP 36.7; O2SAT 93
[2021-11-02] VITALS (9 sets, daily range): BP systolic 108–165; BP diastolic 74–106; PULSE 84–105; RESP 16–20; TEMP 35.9–37.5; O2SAT 94–96
[2021-11-02] MEDS: Nystatin 500000 UNITS/5 ML SUSP 5ML CUP PO ×5 (05:48→22:43)
[2021-11-02 07:11] LABS: Abs Immature Grans 0.14 10^3/uL (0.0-0.06); Absolute Basophil Count 0.04 10^3/uL (0.0-0.2); Absolute Eosinophil Count 0.06 10^3/uL (0.0-0.7); Absolute Lymphocyte Count 0.41 10^3/uL (1.2-3.4); Absolute Monocyte Count 0.69 10^3/uL (0.1-0.8); Absolute Neutrophil Count 7.54 10^3/uL (1.2-6.7); Basophils % 0.5; Eosinophils % 0.7; HCT 39.4 % (36.0-46.0); HGB 12.9 g/dL (11.2-15.7); Immature Grans % 1.6; Lymphocytes % 4.6; MCH 32.3 pg (27.0-33.0); MCHC 32.7 % (32.0-36.0); MCV 99 fL (80-95); MPV 9.9 fL (8.0-11.0); Monocytes % 7.8; Neutrophils % 84.8; Platelet Count 253 10^3/uL (130-400); RDW 13.6 % (11.7-14.6); RDW-SD 49.4 fL; WBC 8.88 10^3/uL (4.4-10.8)
[2021-11-02 07:40] LABS: Anion Gap 7.6 mmol/L (3-11); BUN 18 mg/dL (7-18); CO2 27.4 mmol/L (21.0-32.0); CREATININE 0.7 mg/dL (0.55-1.02); Calcium 9.3 mg/dL (8.5-10.1); Chloride 92 mmol/L (98-107); Glucose 130 mg/dL (74-106); Magnesium 1.8 mg/dL (1.8-2.4); Potassium 4.4 mmol/L (3.5-5.1); Sodium 127 mmol/L (136-145)
[2021-11-02] MEDS: Nystatin POWDER 60 GM JAR TP ×3 (08:37→20:50)
[2021-11-02] MEDS: Citalopram 20 MG TAB PO (08:38)
[2021-11-02] MEDS: Salt Supplement (BUFFERED) TAB 2 TAB PO ×2 (08:38→20:47)
[2021-11-02] MEDS: Fludrocortisone 0.1 MG TAB PO (08:38)
[2021-11-02] MEDS: Famotidine 20 MG TAB PO (08:38)
[2021-11-02] MEDS: Dexamethasone 1 MG TAB 3 MG PO ×2 (08:38→20:48)
[2021-11-02] MEDS: Omeprazole 20 MG CAPCR PO (08:38)
[2021-11-02] MEDS: Budesonide/Formoterol 80/4.5 6.9 GM 60 PUFF INH IH ×2 (08:49→20:49)
--- NOTE | 2021-11-02 09:06 | PT.INTREAT ---
PT Notes Visit Reasons: Weakness Subjective: Pt pleasant and cooperative, pt agreed to participating with therapy. Objective: Pain: Pt had no complaint of pain. Vital Signs: WNL as closely monitored by nursing staff Bed Mobility/Transfers: Sit to stand stand by assist with verbal/tactile cues needed for hand placement Stand to sit stand by assist with verbal/tactile cues needed for hand placement Gait: 40'x 2 with FWW, 80'x2 with 4WW Balance: Static Sitting: Good Dynamic Sitting: Good Static Standing: Fair Dynamic Standing: Fair Assessment: Pt able to utilize 4WW longer and farther compared to FWW, pt safe with AD utilization and was able to manage brakes during turns as well as increased mobility and speed allowed by AD. TREATMENT CODE/TIME: 15364 x 25 minutes (11:35am).
--- NOTE | 2021-11-02 10:22 | PT.INTREAT ---
Date of service: 11/02/21 Time of Service: 09:54 PT Notes Visit Reasons: Weakness Inpatient Physical Therapy Treatment Note [facility] Date: 11/02/2021 PRECAUTIONS: Fall, activity as tolerated SUBJECTIVE: Phyllis is pleasant and agreeable to participating in PT. She reports that she feels tired today. OBJECTIVE: Concerns regarding reported dizziness, sudden CARPENTER and elevated BP discussed with primary nurse, clinical coordinator and hospitalist. PAIN: Patient c/o stomach cramping prior to voiding, then c/o sudden frontal CARPENTER post ambulation BED MOBILITY/TRANSFERS Supine-sit: SBA with HOB at 50 degrees Sit-supine: SBA with HOB at 20 degrees Sit-stand: CGA Stand-sit: CGA GAIT Assistive Device: 4WW Weight bearing: Full Assist: CGA Distance: 50' x2 Deviation: Seated rest due to dizziness VITALS: BP: 165/106, HR: 92 bpm post ambulation (taken by nursing) TOILETING: Patient toileted with assist ASSESSMENT: Patient demonstrates limited activity tolerance and ability today compared to yesterday, complaining of dizziness with gait training and positional changes. PLAN: Continue with global strengthening and general conditioning for improved activity tolerance and mobility, as tolerated and as symptoms allow. TREATMENT CODE/TIME: Session 1: 26 minutes; 45310 x2 (09:54) Session 2: Patient refused
--- NOTE | 2021-11-02 10:24 | PGE_ITS ---
Date of Service Date of service: 11/02/21 Time of Service: 10:25 Assessment and Plan Assessment and plan (1) Acute adrenal insufficiency: Status: Acute Assessment and plan: Improving. Currently on Decadron 3 mg p.o. twice daily her baseline dose of is 4 mg once a day. We will consult with endocrine regarding appropriate tapering schedule given that she needs chronic Decadron for her brain metastasis. Professional time spent interviewing and examining patient, discussion of goals of care with hospital team (care management, nursing and consulting professionals) was 30 minutes. (2) Brain cancer: Status: Chronic Assessment and plan: Secondary to metastatic non-small cell lung cancer. Status post radiation and surgical treatment. Recent MRI of the brain was performed 10/10/2021 showed stable solitary intracranial metastatic lesion and small vessel ischemic disease. No new intracranial metastasis. No infarcts. CT of the head performed without contrast on admission on 10/30/2021 showed no acute intracranial process. If her headaches do not respond to control of her blood pressure or she develops other neurologic symptoms other than the headaches I will consider repeating a CT scan of her head later today. (3) Metastatic non-small cell lung cancer: Status: Acute (4) Elevated blood-pressure reading without diagnosis of hypertension: Status: Acute Assessment and plan: No prior history of hypertension not chronically on any antihypertensive medications. I suspect that this is secondary to the recent increase in her Decadron. She is also on fludrocortisone. I will treat her acute hypertension with hydralazine see if we get her blood pressure down and control her headaches. I will start her on some chlorthalidone (5) Headache: Status: Acute Assessment and plan: We will treat with Tylenol. Control her blood pressure. Headaches persist will obtain a CT of her head (6) Thrush: Status: Acute Assessment and plan: Not improving on nystatin swish and swallow. We will add Diflucan (7) Ambulatory dysfunction: Status: Acute Assessment and plan: Continue physical therapy as tolerated. Unclear at this point whether she will be able to return home with outpatient home PT and home nursing versus whether she will need [facility] facility. (8) Weakness: Status: Acute (9) COPD (chronic obstructive pulmonary disease): (10) DVT prophylaxis: Status: Acute Assessment and plan: Continue enoxaparin (11) Discharge planning issues: Status: Acute Assessment and plan: Patient remains full code. Patient intends to return to her home. She will likely need home health services including home PT. Subjective Subjective Interval history since last seen: Patient complains of frontal headache this morning, associated w/ dizziness while ambulating for P.T. No assoc. nausea or vomiting nor any blurred vision nor double vision and no focal weakness. BP is considerably higher than prior readings although she has been elevated since last night. 165/106 this a.m. but was up to 179/93 last night at 23:00. Yesterday she was running 130's/80's. She is on high dose dexamethasone. Exam Narrative Exam Narrative: Patient is alert and appears place time circumstance. No facial asymmetry no dysarthric speech full extraocular motion intact no focal visual field deficits. Motor exam no focal motor deficits with normal strength and range of motion arms and legs. Oropharynx still with thick white coating on her tongue and palate Lungs with coarse bilateral rhonchi and expiratory wheezes Heart regular rate and rhythm Abdomen soft nontender Objective Last Vital Signs Temp 35.9 C L 11/02/21 10:17 Pulse 93 H 11/02/21 10:17 Resp 16 11/02/21 10:17 BP 165/106 H 11/02/21 10:17 Pulse Ox 96 11/02/21 10:17 Laboratory Results - last 24 hr 11/02/21 11/02/21 06:52 06:52 WBC 8.88 RBC 4.00 Hgb 12.9 Hct 39.4 MCV 99 H MCH 32.3 MCHC 32.7 RDW 13.6 Plt Count 253 MPV 9.9 Immature Gran % 1.6 Neutrophils % 84.8 Lymphocytes % 4.6 Monocytes % 7.8 Eosinophils % 0.7 Basophils % 0.5 Nucleated RBC % 0.0 Absolute Neutrophils 7.54 H Absolute Lymphocytes 0.41 L Absolute Monocytes 0.69 Absolute Eosinophils 0.06 Absolute Basophils 0.04 Sodium 127 L Potassium 4.4 Chloride 92 L Carbon Dioxide 27.4 Anion Gap 7.6 BUN 18 Creatinine 0.7 Estimated GFR/1.73 m2 >= 60.00 Glucose 130 H Calcium 9.3 Magnesium 1.8
[2021-11-02] MEDS: Chlorthalidone 25 MG TAB PO (10:40)
[2021-11-02] MEDS: Normal Saline Flush 10 ML SYR IVP ×2 (10:41→20:51)
[2021-11-02] MEDS: hydrALAZINE 20 MG/ML VIAL IVP (10:41)
--- NOTE | 2021-11-02 10:44 | W.PALLCONSUL ---
Date of service: 11/01/21 Time of Service: 13:00 History of Present Illness Narrative: Ms. Ferguson is a 66 y/o F currently inpatient at [facility] 2/2 weakness; PMHx sig for NSCLC w/mets and brain cancer; PC consult placed to review GOC, Code status; present at time of visit pt, pt's friend Anabella and her son; preference to conduct PC visit outpatient pt reports feeling okay; continues w/q3k infusions at [facility], would be willing to do PC visit during infusion, next scheduled 11/13/21; has completed AD paperwork however unsure of what it contains, does not wish to discuss code status at this time d/t friend visiting, would like Kendall /[facility] present as able; plans for discharge soon Hospital course: presented to [facility] ED on 10/30/21 w/CC weakness potentially exacerbated w/taper of steroids; transferred inpatient for observation; head/brain CT no acute process; continued taper of steroids w/endocrinology consult; Assessment and Plan Assessment and plan (1) Metastatic non-small cell lung cancer: Status: Acute Assessment and plan: f/b [facility], infusion scheduled 11/13/21, will f/u outpatient (2) Brain cancer: Status: Chronic Assessment and plan: Last MRI done in 10/20 showing a stable brain metastasis. repeat CT pending (3) Acute adrenal insufficiency: Status: Acute Assessment and plan: Improving.? Currently on Decadron 3 mg p.o. twice daily her baseline dose of is 4 mg once a day.? We will consult with endocrine regarding appropriate tapering schedule given that she needs chronic Decadron for her brain metastasi (4) Weakness: Status: Acute Assessment and plan: continue to work w/PT, consider PT on discharge (5) Full code status: Status: Acute Assessment and plan: to f/u and review at f/u obtain copy of AD requested (6) Palliative care encounter: Status: Acute Assessment and plan: continue to follow outpatient, [facility] visits as pt lives in [place] Review of Systems Narrative: see HPI PFSH All Active Problems (Updated 11/02/21 @ 10:58 by Paulina Moser NP) Palliative care encounter (Acute) Full code status (Acute) Headache (Acute) Elevated blood-pressure reading without diagnosis of hypertension (Acute) Thrush (Acute) Metastatic non-small cell lung cancer (Acute) Discharge planning issues (Acute) DVT prophylaxis (Acute) Ambulatory dysfunction (Acute) Acute adrenal insufficiency (Acute) Brain cancer (Chronic) Inability to walk (Acute) Weakness (Acute) Medical History (Updated 11/02/21 @ 10:58 by Paulina Moser NP) Brain cancer Chronic hyponatremia COPD (chronic obstructive pulmonary disease) Lung cancer Surgical History Hx of CABG Social History Smoking/Tobacco Use Status: Former Tobacco Use Smoking risk assessment performed?: Yes Alcohol Intake: former Drug use: Never Substance use type: does not use Do you feel safe at home: Yes Do you feel safe in your relationship?: Yes Exam Narrative Exam Narrative: in bed w/HOB elevated throughout brief visit; pt pleasant, cooperative, speaks clearly but unable to engage in conversation regarding CODE status Const General: cooperative, comfortable and no acute distress Nutritional Appearance: average body habitus Orientation: alert, awake, oriented to person, oriented to place and confused Resp Effort & Inspection: normal respiratory effort, able to speak in complete sentences, no audible wheezes and no cough Psych Appearance: grossly normal Speech and Movement: speech clear Affect: blunted Thought Process: impoverished Insight: limited Judgment: limited Results Last Vital Signs Temp 96.6 F L 11/02/21 10:17 Pulse 93 H 11/02/21 10:17 Resp 16 11/02/21 10:17 BP 165/106 H 11/02/21 10:17 Pulse Ox 96 11/02/21 10:17 Labs Result diagrams: 11/02/21 06:52 11/02/21 06:52 Labs: Laboratory Results - last 24 hr 11/02/21 11/02/21 06:52 06:52 WBC 8.88 RBC 4.00 Hgb 12.9 Hct 39.4 MCV 99 H MCH 32.3 MCHC 32.7 RDW 13.6 Plt Count 253 MPV 9.9 Immature Gran % 1.6 Neutrophils % 84.8 Lymphocytes % 4.6 Monocytes % 7.8 Eosinophils % 0.7 Basophils % 0.5 Nucleated RBC % 0.0 Absolute Neutrophils 7.54 H Absolute Lymphocytes 0.41 L Absolute Monocytes 0.69 Absolute Eosinophils 0.06 Absolute Basophils 0.04 Sodium 127 L Potassium 4.4 Chloride 92 L Carbon Dioxide 27.4 Anion Gap 7.6 BUN 18 Creatinine 0.7 Estimated GFR/1.73 m2 >= 60.00 Glucose 130 H Calcium 9.3 Magnesium 1.8
[2021-11-02] MEDS: Fluconazole 100 MG TAB 400 MG PO (12:26)
[2021-11-02] MEDS: Tiotropium Bromide-Respimat 10 PUFF INH 2 PUFF IH (12:30)
[2021-11-02] MEDS: Albuterol/Ipratropium 3 ML UPD VIAL UPD ×3 (12:32→20:51)
--- NOTE | 2021-11-02 16:15 | CHAPLAIN ---
Phyllis was resting in bed when I visited. She appreciated the prayer shawl I gave her. When she struggled to come up with some words, she told me that she has brain cancer and it affects her thinking. She lives in [place] with her longtime significant other who visits frequently. Phyllis said she does not like being in the hospital and hopes to go home soon. Palliative Care will be following up with her.
[2021-11-02] MEDS: Acetaminophen 500 MG TAB 1000 MG PO (17:22)
--- NOTE | 2021-11-02 17:59 | CMPROGNOTE_ITS ---
- If Service Date Differs Date of service: 11/02/21 Time of Service: 17:59 Care Management Progress Note S/O: Phyllis was sleeping when CM attempted to meet with her. Per report, her renal function is improving. MD will consult endocrine regarding appropriate steroid taper dosing. She had a palliative care consult, but did not want to discuss goals of care or code status without her present. Palliative will follow her out patient. CM will continue to follow. A: Phyllis is a 66 year old female admitted to [facility] on 10/30/21 with weakness. P: Phyllis will likely return home when medically cleared. She may benefit from services, if indicated. She will follow up with her PCP and discharge plan of care. CM will continue to follow.
[2021-11-02] MEDS: Atorvastatin 40 MG TAB 80 MG PO (20:48)
[2021-11-02] MEDS: Ondansetron O.D.T. 4 MG TABEF 8 MG PO (21:26)
[2021-11-02] MEDS: Prochlorperazine 10 MG TAB PO (21:47)
[2021-11-03] VITALS (12 sets, daily range): BP systolic 110–162; BP diastolic 73–102; PULSE 81–120; RESP 5–24; TEMP 35.5–37; O2SAT 91–96
--- NOTE | 2021-11-03 | DI.CT_ITS ---
Exam(s) CT HEAD WO EXAM: CT HEAD WO CLINICAL HISTORY: headache. TECHNIQUE: Imaging Protocol: Axial computed tomography images with coronal and sagittal reformatted images were created and reviewed COMPARISON: CT CT HEAD WO from 10/30/2021 FINDINGS: Ventricles and Extra axial spaces: Normal in size and morphology for the patient's age. Hemorrhage: None. Cerebral parenchyma: Stable encephalomalacia. Stable areas of decreased attenuation in the white mat ter most consistent with small vessel ischemic disease. No acute territorial infarct. Midline shift: None. Brainstem/Cerebellum: Normal. Calvarium: Normal. Stable prior left parietal craniotomy. Visualized Paranasal sinuses/Mastoids: Clear. Soft Tissues: Unremarkable. IMPRESSION: No change in appearance of the CT brain since 10/30/2021. RADIATION DOSE DELIVERED: 744.23mGy.cm Total DLP DATA REPOSITORY: All CT scans at this facility are submitted to the National Radiology Data Registry (NRDR) Dose Index Registry (DIR) with the [employer] (A[employer]). RADIATION OPTIMIZATION: All CT scans at this facility use at least one of these dose optimization te chniques: automated exposure control; mA and/or kV adjustment per patient size (includes targeted exa ms where dose is matched to clinical indication); or iterative reconstruction.
[2021-11-03] MEDS: Nystatin 500000 UNITS/5 ML SUSP 5ML CUP PO ×4 (05:37→18:06)
--- NOTE | 2021-11-03 07:00 | RT.EKG_ITS ---
APPROVED REPORT Exam: Resting ECG Reason for Exam: qtc monitoring Patient Location: I HR:104 bpm ECG Measurements Heart Rate 104 AXIS MA 115 P 75 QRSd 91 QRS 57 QT 337 T 50 QTc 444 Conclusion Sinus tachycardia...rate> 99 Probable left atrial enlargement...P >50mS, <-0.10mV V1 Minimal ST depression, diffuse leads...ST <-0.03mV, ant/lat/inf
[2021-11-03 07:11] LABS: HCT 39.7 % (36.0-46.0); HGB 13.6 g/dL (11.2-15.7); MCH 32.9 pg (27.0-33.0); MCHC 34.3 % (32.0-36.0); MCV 96 fL (80-95); Platelet Count 244 10^3/uL (130-400); RBC 4.14 10^6/uL (3.93-5.22); RDW 14.1 % (11.7-14.6); RDW-SD 49.6 fL
[2021-11-03 07:25] LABS: Anion Gap 7.3 mmol/L (3-11); BUN 18 mg/dL (7-18); CO2 28.7 mmol/L (21.0-32.0); CREATININE 0.8 mg/dL (0.55-1.02); Calcium 9.2 mg/dL (8.5-10.1); Chloride 89 mmol/L (98-107); Glucose 167 mg/dL (74-106); Sodium 125 mmol/L (136-145)
[2021-11-03] MEDS: Tiotropium Bromide-Respimat 10 PUFF INH 2 PUFF IH (07:47)
[2021-11-03] MEDS: Budesonide/Formoterol 80/4.5 6.9 GM 60 PUFF INH IH ×2 (07:48→19:33)
[2021-11-03] MEDS: Fludrocortisone 0.1 MG TAB PO (07:52)
[2021-11-03] MEDS: Salt Supplement (BUFFERED) TAB 2 TAB PO ×2 (07:53→19:33)
[2021-11-03] MEDS: Citalopram 20 MG TAB PO (07:53)
[2021-11-03] MEDS: Dexamethasone 1 MG TAB 3 MG PO (07:53)
[2021-11-03] MEDS: Famotidine 20 MG TAB PO (07:53)
[2021-11-03] MEDS: Nystatin POWDER 60 GM JAR TP ×3 (07:53→19:33)
[2021-11-03] MEDS: Fluconazole 100 MG TAB 200 MG PO (07:53)
[2021-11-03] MEDS: Chlorthalidone 25 MG TAB PO (07:53)
[2021-11-03] MEDS: Omeprazole 20 MG CAPCR PO (08:00)
[2021-11-03] MEDS: Albuterol/Ipratropium 3 ML UPD VIAL UPD ×4 (08:02→19:33)
--- NOTE | 2021-11-03 12:19 | PT.INTREAT ---
Date of service: 11/03/21 Time of Service: 11:32 PT Notes Visit Reasons: Weakness Inpatient Physical Therapy Treatment Note [facility] Date: 11/03/2021 PRECAUTIONS: Fall, activity as tolerated SUBJECTIVE: Phyllis is pleasant and agreeable to participating in PT. She reports that she is feeling somewhat better today. She reports that she has not experienced any dizziness yet this morning, although has only gotten OOB to use the bedside commode today. OBJECTIVE: Concerns regarding reported dizziness, elevated BP discussed with primary nurse and clinical coordinator. PAIN: No c/o pain BED MOBILITY/TRANSFERS Supine-sit: CGA with HOB at 30 degrees (patient requires extra time to complete transfer) Sit-stand: SBA Stand-sit: SBA GAIT Assistive Device: 4WW Weight bearing: Full Assist: CGA - SBA Distance: 50' Deviation: Dizziness VITALS: BP: 144/110, HR: 124 bpm post ambulation (taken by nursing) TOILETING: Patient toileted with assist 4WW MECHANICS: Reviewed with patient, provided education for caregiver () on safe and appropriate use of 4WW locks, brakes and seat. ASSESSMENT: Patient demonstrates limited activity tolerance and ability due to dizziness with gait training and positional changes. PLAN: Continue with global strengthening and general conditioning for improved activity tolerance and mobility, as tolerated and as symptoms allow. TREATMENT CODE/TIME: 35 minutes; 58916 x2 (11:32)
[2021-11-03] MEDS: Acetaminophen 500 MG TAB 1000 MG PO (13:40)
--- NOTE | 2021-11-03 13:45 | PGE_ITS ---
Date of Service Date of service: 11/03/21 Time of Service: 13:45 Assessment and Plan Assessment and plan (1) Acute adrenal insufficiency: Status: Acute Assessment and plan: Improving.? Currently on Decadron 3 mg p.o. twice daily her baseline dose of is 4 mg once a day.? We will consult with endocrine regarding appropriate tapering schedule given that she needs chronic Decadron for her brain metastasis. Call placed to [facility] and requested telephone consultation with endocrinology. I was given the name of Dr. Nilesh Bell who was paged and given my cell phone to call me back regarding the consultation. I have also requested a telephone consultation w/ Dr. Bian, [place] [facility] [place] time spent interviewing and examining patient, discussion of goals of care with hospital team (care management, nursing and consulting professionals) was 30 minutes. (2) Elevated blood-pressure reading without diagnosis of hypertension: Status: Acute Assessment and plan: DC chlorthalidone in light of her hyponatremia. We will start on amlodipine 5 mg daily monitor orthostatic blood pressures. (3) Metastatic non-small cell lung cancer: Status: Acute Assessment and plan: f/b [facility], infusion scheduled 11/13/21 (4) Brain cancer: Status: Chronic Assessment and plan: Last MRI done in 10/20 showing a stable brain metastasis. repeat CT ordered for today due to recurrent headaches and elevated blood pressure. (5) Headache: Status: Acute Assessment and plan: Treat with Tylenol. Will adjust blood pressure medications to control her h ypertension. (6) Thrush: Status: Acute Assessment and plan: improving w/ diflucan and nystatin swish and swallow (7) Ambulatory dysfunction: Status: Acute Assessment and plan: still weak and unsteady and needing P.T. She is not ready to return home yet given the labile BP, orthostatic dizziness (w/ hypertensive response) (8) Discharge planning issues: Status: Acute (9) DVT prophylaxis: Status: Acute Subjective Subjective Interval history since last seen: Patient's had current headache and dizziness associated with marked elevation of blood pressure with standing and ambulating for physical therapy. Still has persistent headache despite her blood pressure coming back down the normal range. Patient was started on chlorthalidone yesterday. Her serum sodium has dropped a bit today therefore I am stopping the chlorthalidone in favor of amlodipine for blood pressure. I put a call out to endocrinology at [facility] to discuss appropriate tapering schedule on her Decadron. Exam Narrative Exam Narrative: Patient is alert and orient x3 no focal neurodeficits no facial asymmetry no dysarthric speech. Oropharynx she still has some white coating on her tongue but her soft palate appears to be free of any white exudate Lungs with scattered expiratory wheezes and rhonchi Heart regular but tachycardic Abdomen is obese soft and nontender Extremities with normal range of motion and strength Objective Last Vital Signs Temp 36.7 C 11/03/21 11:06 Pulse 109 H 11/03/21 12:32 Resp 24 11/03/21 12:01 BP 162/102 H 11/03/21 12:01 Pulse Ox 92 11/03/21 12:32 Laboratory Results - last 24 hr 11/03/21 11/03/21 06:52 06:52 WBC 7.40 RBC 4.14 Hgb 13.6 Hct 39.7 MCV 96 H MCH 32.9 MCHC 34.3 RDW 14.1 Plt Count 244 MPV 10.0 Sodium 125 L Potassium 4.0 Chloride 89 L Carbon Dioxide 28.7 Anion Gap 7.3 BUN 18 Creatinine 0.8 Estimated GFR/1.73 m2 >= 60.00 Glucose 167 H Calcium 9.2
[2021-11-03] MEDS: amLODIPine 5 MG TAB PO (14:24)
--- NOTE | 2021-11-03 17:09 | PDOC.CMPRO ---
- If Service Date Differs Date of service: 11/03/21 Time of Service: 17:09 Care Management Progress Note S/O: Phyllis was sitting up in bed when CM met with her today. Her , Kendall, was in the room. He reported that their main concern with Phyllis returning home is her being able to manage the flight of stairs to the main floor of their house. CM reviewed this with MD and PT, and determined that if her mobility limitations are the only concern, CM can coordinate a lift assist to get Phyllis home safely. Per MD, she has been hypertensive and having headaches, therefore he will communicate with her Oncologist, seeking recommendations for management of these symptoms. He will also discuss the steroid taper dosing with endocrinology. Per MD, she is not medically cleared for discharge today. CM will continue to follow. A: Phyllis is a 66 year old female admitted to [facility] on 10/30/21 with weakness. P: Phyllis will likely return home when medically cleared. She may benefit from services, if indicated. She will follow up with her PCP and discharge plan of care. CM will continue to follow.
--- NOTE | 2021-11-03 17:40 | PT.INDS ---
Date of service: 11/03/21 PT Notes Visit Reasons: Weakness Physical Therapy Inpatient Discharge Summary Date: 11/03/2021 Dates of service: 10/31/2021 through 11/03/2021 This is a clinical summary of care provided for the duration of dates listed above. No charge was made in the completion of this documentation. Referring Doctor: Martin Galvin MD PT Orders: PT CONSULT: Exacerbation Chronic Cond Precautions: Fall. Standard. Activity as tolerated. Patient Profile/Admitting Diagnosis:? Phyllis is a 66-year-old female with past medical history significant for brain carcinoma status post resection and radiation therapy who has been on chronic steroids, currently being tapered,? who presented to the ED on 10/30/2021 due to inability to ambulate, generalized weakness, and increased confusion.? Patient is diagnosed with weakness related to steroid withdrawal syndrome with referral to physical therapy for functional mobility training and/or progression. PMHX: All Active Problems? Brain cancer (Chronic) Inability to walk (Acute) Weakness (Acute) Medical History? Brain cancer Lung cancer Surgical History? Hx of CABG Social History/Home Situation: Patient lives with significant other Kendall in a private multilevel home with 12 steps to enter with 1 rail.? Kendall has been providing / care for patient with moderate level for all bed mobility, transfers, and ambulation of assist using no assistive device due to tall carpeting at home.? Distance from bed to bathroom is about 20 feet, to kitchen about 75 feet. Equipment Owned/DME: None Subjective: NT. See most recent [facility] [employer] notes. Objective: General Observation: NT. See most recent [facility] notes. Mental Status: NT. See most recent [facility] [employer] notes. Pain: NT. See most recent [facility] notes. Vital Signs: NT. See most recent [facility] C[employer] notes. ROM: Right Upper Extremity: ? Shoulder Flexion limited to about 90 degrees. Shoulder abduction limited to about 80 degrees. Elbow flexion WFL. Wrist flexion WFL. Functional opening and closing of hand WFL. Left Upper Extremity:? Shoulder Flexion limited to about 90 degrees. Shoulder abduction limited to about 80 degrees. Elbow flexion WFL. Wrist flexion WFL. Functional opening and closing of hand WFL. Right Lower Extremity: Hip flexion WFL. Hip abduction WFL. Knee flexion WFL. Ankle dorsiflexion to neutral only. Ankle plantarflexion WFL. Left Lower Extremity: Hip flexion WFL. Hip abduction WFL. Knee flexion WFL. Ankle dorsiflexion WFL. Ankle plantarflexion WFL. Strength: Right Upper Extremity: Shoulder flexors 3-/5. Shoulder abductors 3-/5. Elbow flexors 4-/5. Elbow extensors 4-/5. Candy Department Manager strong. Left Upper Extremity: Shoulder flexors 3-/5. Shoulder abductors 3-/5. Elbow flexors 4-/5. Elbow extensors 4-/5. Candy Department Manager strong. Right Lower Extremity: Hip flexors 4-/5. Hip abductors 4-/5. Knee flexors 4-/5. Knee extensors 4-/5. Ankle dorsiflexors 3-/5. Ankle plantarflexors 4-/5. Left Lower Extremity: Hip flexors 4-/5. Hip abductors 4-/5. Knee flexors 4-/5. Knee extensors 4-/5. Ankle dorsiflexors 3-/5. Ankle plantarflexors 4-/5. BED MOBILITY/TRANSFERS? Supine-sit: CGA with HOB at 30 degrees (patient requires extra time to complete transfer)? Sit-stand: SBA ? Stand-sit: SBA ? GAIT? Assistive Device: 4WW ? Weight bearing: Full Assist: CGA - SBA ? Distance:? 50' ? Deviation: Dizziness Balance: Static Sitting: Good Dynamic Sitting: Good Static Standing: Fair Dynamic Standing: Fair Assessment: Assess for safety of 4WW use as gonzales has high carpeting at home.? Patient will benefit from HH PT/OT assessment to identify home safety and equipment needs to reduce fall risk at home.? SO Kendall is hoping to install a chair lift at the entrance steps but there are some steps inside the house that patient may need training for prior to going home.? Patient presents with clinical signs and symptoms consistent with current/admitting diagnoses that have resulted to mobility limitations, gait instability, generalized weakness, and overall ADL decline as demonstrated by the following impairment level findings: 1.? Decreased strength to B UE/LE major muscle groups 2.? Impaired sitting/standing balance 3.? Impaired activity tolerance 4.? Limitation of joint range of motion in B shoulders and ankles 5.? Impaired safety awareness 6.? Motor planning issue/apraxia Impairments are contributing to the following functional limitations: 1.? Decline in bed mobility skills 2.? Decline in transfer skills 3.? Difficulty with ambulation without assistive device and physical assistance 4.? Increased completion time for mobility ADL performance 5.? Increased risk for falls 6.? Difficulty with managing steps alone safely Goals: Goals X1 week 1. Supine-Sit independent NOT MET 2. Sit-Supine independent NOT MET 3. Sit-Stand independent NOT MET 4. Stand-Sit stand by assist with 4WW NOT MET 5. Bed-Chair independent with 4WW NOT MET 6. Chair-Bed independent with with 4WW NOT MET 7. Independent gait on level surface with use of with 4WW for at least 100 feet without report of pain nor dyspnea NOT MET 8. Independent stair negotiation while holding onto 1 rail for at least 5 steps without report of pain nor dyspnea NOT MET 9. Good static and dynamic standing balance/tolerance NOT MET DISCHARGE RECOMMENDATIONS: [] ? Home with no services [] [X] ? Home with services.? Home when medically cleared by hospitalist.? Patient will benefit from home health PT services in order to progress mobility level using least restrictive assistive ambulatory device, assess home safety, identify additional equipment needs, and establish a functional maintenance program that will increase ability of patient to remain at home.? Will need OT evalaution for self-care needs assessment. [] ? Home with outpatient PT [] [] ? SNF for continued rehabilitation [] [] ? [facility] [] [] ? SNF versus LTC based on ability to participate and progress [] TREATMENT CODE/TIME: MI Thank you for the opportunity to participate in the care of this patient. Liliana Acharya PT, DPT, CLT [facility] [place], [place]
[2021-11-03] MEDS: Dexamethasone 1 MG TAB 4 MG PO (18:06)
--- NOTE | 2021-11-03 18:37 | W.PM.DS.N ---
DS: Diagnosis Discharge Diagnosis (1) Acute adrenal insufficiency: Status: Suspected Asessment and Plan: patient given decadron 10 mg IVP and put on decadron 3 mg bid which was increased to 4 mg qid on the day of her discharge. This diagnosis is not definitive and alternate explainations of her presenting symptoms are more likely including worsening leptomeningeal carcinomatosis and possible hydrocephalus. (2) Elevated blood-pressure reading without diagnosis of hypertension: Status: Acute Asessment and Plan: labile blood pressures. No prior hx of essential hypertension. may be secondary symptoms d/t her brain mets. (3) Metastatic non-small cell lung cancer: Status: Chronic (4) Brain cancer: Status: Chronic (5) Headache: Status: Acute Asessment and Plan: as above (6) Thrush: Status: Acute Asessment and Plan: secondary to chronic corticosteroids. treated w/ nystatin and diflucan (7) Ambulatory dysfunction: Status: Acute Asessment and Plan: secondary to brain mets. P.T. was consulted but her participation was limited d/t labile hypertension, headaches and orthostatic dizziness (8) Discharge planning issues: Status: Resolved Asessment and Plan: patient transferred to [facility] to service of Dr. Bev Olguin, [facility] w/ oncology consult w/ Dr. Berrios and Dr. Nilesh Bell (9) DVT prophylaxis: Status: Resolved Asessment and Plan: patient was put on enoxaparin 40 mg SC daily. last dose given was on 10/31 at 18:22. Patient refused doses on 11/01 and 11/02. Enoxaparin was on hold those days but discontinued on 11/03. Discharge Plan Disposition Patient Disposition: [facility] Condition: Stable Discharge Details Reason For Visit: Weakness Admit Date/Time: 11/01/21 15:35 Admit Provider: Martin Galvin Attending Provider: Martin Galvin Primary Care Provider: Iqra Cardenas Hospital Course Hospital Course: 66-year-old female with history of brain cancer with leptomeningeal involvement secondary to metastatic non-small cell lung carcinoma has been chronically on steroids and over the last 2 months has been on a taper of her Decadron overseen by her oncologist Dr. Jaramillo. She presented to the emergency department on 10/30/2021 with generalized weakness nausea headaches. Patient had had a recent MRI scan of her brain performed on 10/10/2021 that showed stable solitary intracranial metastatic lesion in the left periventricular white matter. There was no surrounding edema seen no mass-effect. On admission she underwent a CT scan of the head without contrast that showed no acute intracranial process. Because of her chronic cough chest x-ray was checked to evaluate for any infiltrative process. There was no acute pulmonary findings. She does have known underlying COPD and the x-ray was consistent with her diagnosis of COPD. She was presumptively diagnosed with acute adrenal insufficiency. It was assumed that her generalized weakness and headaches and nausea were secondary to the recent taper of her dexamethasone. She had previously been on 8 mg of dexamethasone a day and her oncologist had weaned her down to 3 mg a day over 2-month. Our ER physician Dr. Presley had discussed the patient's case with Dr. Morris oncology fellow on-call at [facility] on 10/30/2021 who reviewed the patient's records and recommend giving dexamethasone 10 mg IV and plan for an MRI of the brain in the morning. Unfortunately MRI was not carried out with her admission. Patient was put on oral Decadron 3 mg p.o. twice daily. Patient was found to have thrush and put on oral nystatin swish and swallow when this did not resolve her thrush she was put on Diflucan which did improve her symptoms. Physical therapy was consulted on her. During her hospital stay she had labile blood pressures with hypertensive exaggerations with standing with systolic blood pressures increasing in the 160s and 170s systolic over diastolic readings in the high 90s and low 100s. Patient was initially put on some chlorthalidone as it was felt that the hypertension was in response to increased steroids. However when this worsened her hyponatremia chlorthalidone was discontinued and she was put on amlodipine 5 mg daily. Consultation was requested with oncology on 11/03/2021 in particular I requested talk with Dr. Bain her own oncologist to discuss her medication changes and recommendations. As Dr. Bain was on vacation I was referred to Dr. Berrios the oncology fellow who is on-call. After reviewing the patient's chart Dr. Berrios expressed concern that the patient may be experiencing hydrocephalus secondary to her leptomeningeal disease. She then discussed the case with neuro oncologist Dr. Yousif who indicated that the patient had previously had evaluation including previous MRIs and lumbar puncture and had been tried on high-dose steroids. Dr. Berrios indicated that the patient could be transferred to [facility] for aggressive evaluation including an urgent lumbar puncture and MRI scan of the brain as of services for not available this evening at [facility]. Dr. Berrios did indicate that Dr. Bain had a discussion with the patient indicating that the patient's disease has progressed and that her outlook was poor and that the patient should consider hospice. Present time the patient would like an evaluation by oncology and requested transfer. Patient understands that the high-dose corticosteroids which has been now increased to 4 mg of Decadron qid may not give her any improvement in her symptoms and that a lumbar puncture also may not prove to be diagnostic or therapeutic. Patient be transferred to the service of Dr. Bev Olguin, hospitalist, who is on the callback that I received from Dr. Berrios. Home Meds and New Rx's Prescriptions: No Action atorvastatin 80 mg Tablet 80 mg PO QHS nystatin 100,000 unit/mL Suspension 100,000 unit PO DAILY Rx Instructions: administer 1/2 of dose in each side of the mouth sodium chloride 1 gram Tablet 1 g PO BID prochlorperazine maleate 10 mg Tablet 10 mg PO Q6H PRN PRN folic acid 400 mcg Tablet 400 mcg PO USEASDIRECTD Rx Instructions: takes yearly acetaminophen 500 mg Tablet 1,000 mg PO Q6H PRN ondansetron 8 mg Tablet,Disintegrating 8 mg PO Q8H PRN PRN citalopram 20 mg Tablet 20 mg PO DAILY famotidine 20 mg Tablet 20 mg PO DAILY dexamethasone 2 mg Tablet 4 mg PO DAILY Rx Instructions: start oct 30 and then [facility] omeprazole 20 mg Capsule,Delayed Release(Dr/Ec) 20 mg PO DAILY albuterol sulfate [ProAir HFA] 90 mcg/actuation Hfa Aerosol Inhaler 2 puff INHALATION Q4H PRN PRN fludrocortisone 0.1 mg Tablet 0.1 mg PO DAILY fluticasone furoate-vilanterol [Breo Ellipta] 100-25 mcg/dose Blister With Device 1 inh INHALATION DAILY Discharge Instructions Instructions: Hydrocephalus (DC), Brain Metastasis (DC) Activity:: Activity as Tolerated Diet:: Carb Counting Discharge Orders Discharge Orders: Discharge Order (Routine); Ordered 11/03/21 Ordered By: Jerry Haynes DS: Summary Time Spent with Patient providing and/or coordinating discharge services: Greater than 30 minutes Specific discharge activities: Interview/exam of patient; review of discharge instructions, completion of prescriptions/discharge instructions; discussion w/ nursing and CM; documentation of hospital visit Status at Discharge Functional status at discharge: bed bound Overall status at discharge: patient is progressing back to baseline Mental Status: mental status grossly normal Speech and Movement: speech and movement normal Mood: congruent mood Affect: normal affect Exam Narrative Exam Narrative: Phyllis is lying in bed appears to be fatigued. No acute respiratory distress. Lungs with coarse expiratory rhonchi no rales Heart is regular Abdomen is obese soft and nontender Extremities with normal range of motion and strength. Psych Mental Status: mental status grossly normal Speech and Movement: speech and movement normal Mood: congruent mood Affect: normal affect DS: Data Vitals/I&O Vitals and I&O: Vital Signs Temperature 37 C 11/03/21 14:59 Temperature Source Tympanic 11/03/21 14:59 Pulse 109 H 11/03/21 14:59 Pulse Rhythm Regular 11/03/21 09:19 Pulse 108 H 10/31/21 00:40 Respiratory Rate 22 11/03/21 14:59 Respiratory Effort Non-Labored 11/03/21 09:19 Respiratory Depth Normal 11/03/21 09:19 Respiratory Pattern Normal 11/03/21 09:19 Blood Pressure 110/73 11/03/21 14:59 Blood Pressure Mean 94 10/30/21 22:18 Pulse Oximetry 94 11/03/21 15:52 Oxygen Delivery Method Room Air 11/03/21 15:52 Oxygen Flow Rate 0 11/03/21 15:52 Pain Level 0 11/03/21 14:59 Comment 11/03/21 12:01 Intake & Output 11/02/21 11/03/21 11/03/21 23:59 11:59 23:59 Intake Total 500 / 500 0 / 500 Output Total 450 / 850 Balance -450 / -650 500 / 500 0 / 500 Intake: Oral 500 / 500 0 / 500 Output: Urine 450 / 850 Other: Urine Color Yellow Yellow Yellow Urine Appearance Cloudy Clear Clear Urine Odor Normal None Comment Could not measure void void not measured pT sat on toilet but did not void. Stool Size Small Stool Characteristics Soft Formed Voiding Methods Bedside Commode Bedside Commode Toilet Data Completed and Pending Labs on day of discharge: Labs from last 24 hours 11/03/21 11/03/21 11/03/21 13:42 06:52 06:52 WBC 7.40 RBC 4.14 Hgb 13.6 Hct 39.7 MCV 96 H MCH 32.9 MCHC 34.3 RDW 14.1 Plt Count 244 MPV 10.0 Sodium 125 L Potassium 4.0 Chloride 89 L Carbon Dioxide 28.7 Anion Gap 7.3 BUN 18 Creatinine 0.8 Estimated GFR/1.73 m2 >= 60.00 Glucose 167 H Serum Osmolality Pending Calcium 9.2 PFSH All Active Problems (Updated 11/03/21 @ 18:42 by Jerry Haynes MD) Palliative care encounter (Acute) Full code status (Acute) Headache (Acute) Elevated blood-pressure reading without diagnosis of hypertension (Acute) Thrush (Acute) Metastatic non-small cell lung cancer (Chronic) Ambulatory dysfunction (Acute) Brain cancer (Chronic) Inability to walk (Acute) Weakness (Acute) Medical History (Updated 11/03/21 @ 18:42 by Jerry Haynes MD) Brain cancer Chronic hyponatremia COPD (chronic obstructive pulmonary disease) Lung cancer Surgical History Hx of CABG Social History Smoking/Tobacco Use Status: Former Tobacco Use Smoking risk assessment performed?: Yes Alcohol Intake: former Drug use: Never Substance use type: does not use Do you feel safe at home: Yes Do you feel safe in your relationship?: Yes
[2021-11-03] MEDS: Atorvastatin 40 MG TAB 80 MG PO (19:33)
--- NOTE | 2021-11-03 20:54 | NUR.NOTE ---
Patient transferred to [facility] 20:30. VSS at time of transfer. Personal possession went with patient.Nursing Note:
[2021-11-05 18:01] LABS: Osmolality Serum 267 mOsm/kg (275-295)
== END 2021-11-03 20:30 | disposition short-term general hospital (02) | DRG 644 ==
LOC: ER 10-31 00:12 → MS 10-31 08:14
PROVIDERS: Family Medicine; Internal Medicine; Admitting Provider General Practice; Emergency Provider Student in an Organized Health Care Education/Training Program; PCP Nurse Practitioner Family; Visit Provider General Practice
DX: E27.40 Unspecified adrenocortical insufficiency (principal); B37.0 Candidal stomatitis; C79.31 Secondary malignant neoplasm of brain; E87.1 Hypo-osmolality and hyponatremia; I67.89 Other cerebrovascular disease; R53.1 Weakness; T38.0X5A Adverse effect of glucocorticoids and synthetic analogues, initial encounter; R26.2 Difficulty in walking, not elsewhere classified; J44.9 Chronic obstructive pulmonary disease, unspecified; Z87.891 Personal history of nicotine dependence; R90.89 Other abnormal findings on diagnostic imaging of central nervous system; Z95.1 Presence of aortocoronary bypass graft; Z85.118 Personal history of other malignant neoplasm of bronchus and lung; R51.9 Headache, unspecified; R03.0 Elevated blood-pressure reading, without diagnosis of hypertension
CPT/HCPCS: 36415; 80048; 80053; 82550; 85027; 87635; 93005; 94640; 97163; 97530; J1650; 70450; 71046; 81003; 81015; 83735; 83930; 84484; 85025; 85049; 93010; 94664; 99219; 99226; 99232; 99239; G0378; J0360; J1100; J7620; J8540